=== PATIENT | male | born 2005 | race Hispanic/Latino ===

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

== ENCOUNTER 2024-03-13 15:25 | Emergency (ER) | payer OTHER, SELFPAY ==
--- NOTE | ~2024-03-13 | XR_ITS ---
EXAMINATION: XR abdomen/kub 1V DATE: 03/13/2024 16:10 INDICATION: Abdominal pain. Diarrhea. TECHNIQUE: A supine view of the abdomen was obtained. COMPARISON: CT abdomen and pelvis 12/25/2023 FINDINGS: There are no dilated loops of bowel. There is a small volume of stool in the colon. Surgica l clips in the right upper quadrant are likely from cholecystectomy. IMPRESSION: 1. Normal bowel gas pattern. Reviewed, dictated and finalized at location A. ENSATION MANAGER
[2024-03-13 15:33] VITALS: BP 152/67; PULSE 81; RESP 19; TEMP 37.2; O2SAT 97
--- NOTE | 2024-03-13 15:55 | ED.NAVMDI ---
HPI - Nausea/Vomiting/Diarrhea General Chief complaint: Nausea/Vomiting/Diarrhea Stated complaint: Anxious/Diarrhea/Surg X Time Seen by Provider: 03/13/24 15:45 Source: patient Mode of arrival: ambulatory Limitations: no limitations History of Present Illness HPI Narrative: Lj is a 18-year-old male patient presenting to the clinic today with complaints of feeling anxious, acute diarrhea, and lower abdominal discomfort. He reports he did have episode of nausea as well yesterday. Denies any fever, chills, or body aches. States he had to leave his college class early yesterday due to feeling overstimulated. States he has been feeling this way for a couple days. Denies any shortness of breath. Does also reports some urinary urgency without burning or frequency. History of cholecystectomy in November Related Data Home Medications Medication Instructions Recorded Confirmed No Home Medications 03/13/24 03/13/24 Allergies Allergy/AdvReac Type Severity Reaction Status Date / Time No Known Allergies Allergy Unknown Verified 03/13/24 15:49 Review of Systems Review of Systems: Pertinent positives per HPI. Patient denies any fever, chills, rash, headache, visual changes, dizziness, cough, runny nose, sore throat, shortness of breath, chest pain, palpitations, nausea, vomiting, diarrhea, constipation, abdominal pain, or any urinary issues. [facility] Past Medical History Medical History Pancreatitis Surgical History Surgical History History of laparoscopic cholecystectomy 12/24/2023 - laparoscopic cholecystectomy with intraoperative cholangiogram Social History Social History Smoking status: Never smoker Alcohol intake: never Substance use: never Substance use type: does not use Do You Feel Safe in your Home?: Yes Lack of Transportation: No Lack of Food: Never True Current Housing: I Have Housing Concerned About Future Housing: No Difficulty Paying Gas/Electric Bills: No Difficulty Paying for Meds: No Currently Unemployed: No Education: Grade School Difficulty w/ Childcare or Family Care: No Gender identity (if verbalized by the patient): Male Spiritual care concerns: No Comments At the time of my signature, I reviewed and agree with the nursing past medical, surgical, social, and family history. There is no relevant family history pertinent to the patient complaint. Exam Narrative: General: Well-developed, well nourished, in no apparent distress. Head: Normocephalic, atraumatic. Cardio: Regular rate and rhythm, s1 and s2 normal, no murmur appreciated. Resp: Clear to auscultation bilaterally, no rhonchi, rales, wheezing or rubs. Abdomen: Soft, pliable, bowel sounds present in all quadrants, mildly tender to palpation to the mid lower abdomen, no organomegly, no CVAT tenderness. Course Course Emergency Course: Portions of this record may have been created with voice recognition software. Level of Care: Express Care Visit Vital Signs Vital signs: Vital Signs Temperature 37.2 C 03/13/24 15:33 Pulse Rate 81 03/13/24 15:33 Respiratory Rate 19 03/13/24 15:33 Blood Pressure 152/67 H 03/13/24 15:33 Pulse Oximetry 97 03/13/24 15:33 Oxygen Delivery Room Air 03/13/24 15:33 Temperature 37.2 C 03/13/24 15:33 Pulse Rate 81 03/13/24 15:33 Respiratory Rate 19 03/13/24 15:33 Blood Pressure 152/67 H 03/13/24 15:33 Pulse Oximetry 97 03/13/24 15:33 Oxygen Delivery Room Air 03/13/24 15:33 Vital signs reviewed MDM - Nausea/Vomiting/Diarrhea MDM Narrative Medical decision making narrative: At the time of visit patient is resting comfortably on the exam table. Patient appears to be nontoxic. Labs: Urinalysis is negative for any sign protein, bacteria, blood, or ketones. Diagnostics: KUB x-ray shows a small amount of stool in the colon. Normal bowel gas pattern Plan: I suspect patient may have acute anxiety, acute diarrhea, and acute urgency with urination. Supportive measures were discussed with the patient and they voiced understanding discharge instructions and agrees to treatment plan. Return precautions reviewed Differential Diagnosis Differential diagnosis: Likely traveler's diarrhea, food poisoning, gastroenteritis, clostridium difficile infection, drug-induced nausea and vomiting and dehydration Lab Data Labs: Lab Results 03/13/24 Range/Units 16:00 POC Urine Color [place] POC Urine Clarity Clear POC Urine pH 6.0 POC Ur Specif [place] 1.025 POC Urine Protein Negative (Negative) POC Ur Glucose (UA) Negative (Negative) POC Urine Ketones Negative (Negative) POC Urine Blood Negative (Negative) POC Urine Nitrite Negative (Negative) POC Urine Bilirubin Negative (Negative) POC Urine Urobilinogen 0.2 POC U Leukocyte Esteras Negative (Negative) Discharge Plan Discharge Clinical Impression: Acute diarrhea, Anxiety, Urinary urgency Patient Disposition: Home, Self-Care Condition: Stable Instructions: Antibiotic Form, Acute Diarrhea (ED), Abdominal Pain (ED), Urinary Urgency and Frequency (DC) Additional Instructions: X-ray of the abdomen is negative for any sign acute abnormality. Shows normal bowel gas pattern. Urinalysis is negative for any sign of infection, blood, protein, or ketones. Increase fluids and stay well hydrated May try practicing relaxation techniques for periods of feeling anxiety Increase fiber in your diet May take Imodium as needed for diarrhea as long as there is no blood in your stool Brat diet for diarrhea Follow-up with your primary care doctor in 1 week if your symptoms persist or sooner if they worsen May go to the emergency room if your symptoms worsen Prescriptions: No Action No Home Medications Follow-up/Referrals: [facility] [Primary Care Provider] - Time of Disposition: 16:20 Quality NIHSS Nursing Documentation ED NIHSS nursing documentation: reviewed/agree
[2024-03-13 16:14] LABS: EDUAAPPEAR Clear; EDUABILI Negative (Negative); EDUABLOOD Negative (Negative); EDUACOLOR1 Amber; EDUAGLUCOSE Negative (Negative); EDUAKETONE Negative (Negative); EDUALEUKO Negative (Negative); EDUANITRATE Negative (Negative); EDUAPROTEIN Negative (Negative); EDUASPGRAVITY 1.025; EDUAUROBILI 0.2
== END 2024-03-13 16:30 | disposition home or self-care (01) ==
PROVIDERS: Emergency Provider Nurse Practitioner Family
DX: R19.7 Diarrhea, unspecified (principal); F41.9 Anxiety disorder, unspecified; R39.15 Urgency of urination
CPT/HCPCS: 74018; 81003; 99213; G0463

== ENCOUNTER 2024-03-22 13:07 | Emergency (ER) | payer OTHER, SELFPAY ==
[2024-03-22 13:15] VITALS: BP 117/71; PULSE 80; RESP 18; TEMP 36.7; O2SAT 98
--- NOTE | 2024-03-22 13:52 | ED_ITS ---
HPI - Eye Problem General Chief complaint: Eye Problems Stated complaint: Eyes Irritation Time Seen by Provider: 03/22/24 13:57 Source: patient, RN notes reviewed and old records reviewed Mode of arrival: ambulatory Limitations: no limitations History of Present Illness HPI Narrative: Patient reports history of seasonal allergies, not taking medications for same, presents with complaints of itchiness to bilateral eyes, worse in the morning. He denies any a.m. matting. He denies any visual disturbance. He denies any injury or trauma. He voices no other concerns or complaints at this time. He does not wear any contact lenses Related Data Allergies Allergy/AdvReac Type Severity Reaction Status Date / Time No Known Allergies Allergy Unknown Verified 03/22/24 13:10 Review of Systems Review of Systems: All systems reviewed & are unremarkable except as noted in HPI and below Constitutional: Constitutional: Reports no additional constitutional complaints Eyes: Eyes: Reports as per HPI, Reports no additional eye complaints, Reports irritation and Reports itchy eyes ENT: Reports system reviewed and no additional complaints, except as documented Cardiovascular: Cardiovascular: Reports no additional cardiovascular complaints Respiratory: Respiratory: Reports no additional respiratory complaints Gastrointestinal: Gastrointestinal: Reports no additional gastrointestinal complaints [facility] Past Medical History Medical History Pancreatitis Surgical History Surgical History History of laparoscopic cholecystectomy 12/24/2023 - laparoscopic cholecystectomy with intraoperative cholangiogram Social History Social History Smoking status: Never smoker Alcohol intake: never Substance use: never Substance use type: does not use Do You Feel Safe in your Home?: Yes Lack of Transportation: No Lack of Food: Never True Current Housing: I Have Housing Concerned About Future Housing: No Difficulty Paying Gas/Electric Bills: No Difficulty Paying for Meds: No Currently Unemployed: No Education: Grade School Difficulty w/ Childcare or Family Care: No Gender identity (if verbalized by the patient): Male Spiritual care concerns: No Comments At the time of my signature, I reviewed and agree with the nursing past medical, surgical, social, and family history. There is no relevant family history pertinent to the patient complaint. Exam Const: General: cooperative, no acute distress, alert and awake Orientation/consciousness: oriented to person, oriented to place and oriented to time HENMT: Head: normal to inspection Mouth: Yes moist mucous membranes Eyes: General: appearance normal, both eyes and all related structures Resp: Effort & Inspection: normal respiratory effort and able to speak in complete sentences Auscultation: clear to auscultation bilaterally, no crackles, no rales, no rhonchi and no wheezes Cardio: Palpation: normal PMI Rate: regular rate Rhythm: regular rhythm Heart sounds: S1 normal heart sound present and S2 normal heart sound present Neuro: General: oriented to person, oriented to place and oriented to time Cranial nerves: Yes CN's II-XII intact bilaterally Psych: Appearance: grossly normal Thought process: Normal thought process present Insight: Good insight present (Psych) Judgement: Good judgement present (Psych) Course Course Level of Care: Express Care Visit Vital Signs Vital signs: Vital Signs Temperature 98.1 F 03/22/24 13:15 Pulse Rate 80 03/22/24 13:15 Respiratory Rate 18 03/22/24 13:15 Blood Pressure 117/71 03/22/24 13:15 Pulse Oximetry 98 03/22/24 13:15 Oxygen Delivery Room Air 03/22/24 13:15 Temperature 98.1 F 03/22/24 13:15 Pulse Rate 80 03/22/24 13:15 Respiratory Rate 18 03/22/24 13:15 Blood Pressure 117/71 03/22/24 13:15 Pulse Oximetry 98 03/22/24 13:15 Oxygen Delivery Room Air 03/22/24 13:15 Reviewed MDM - Eye Problem MDM Narrative Medical decision making narrative: No abnormalities on exam. Patient advised to take [id number] allergy relief medications per package instructions. Discharge instructions reviewed with patient, as well as provided in writing per nursing staff. The instructions also include specific and strict return/GO TO THE ER as well as f/u information. All questions have been answered, and the patient deny any further questions with discharge and discharge plan. Some parts of this dictation were generated by voice recognition software and may contain typographical and/or grammatical inaccuracies. Differential Diagnosis Differential diagnosis: Likely conjunctivitis Medical Records Attestation: I reviewed the patient's medical records. Discharge Plan Discharge Clinical Impression: Seasonal allergies Patient Disposition: Home, Self-Care Condition: Stable Instructions: Antibiotic Form, Allergies (ED) Additional Instructions: Take medications as prescribed, follow up with primary care provider. Emergency department for new or worse symptoms Patient Language: Grenadian Prescriptions: New cetirizine [Zyrtec] 10 mg tablet 10 mg PO DAILY PRN (Reason: allergy symptoms) Qty: 30 0RF Follow-up/Referrals: PHYSICIAN,PATIENT NAVIGATOR [Primary Care Provider] - Time of Disposition: 14:06
== END 2024-03-22 14:20 | disposition home or self-care (01) ==
PROVIDERS: Emergency Provider Nurse Practitioner Family
DX: J30.2 Other seasonal allergic rhinitis (principal)
CPT/HCPCS: 99213; G0463

== ENCOUNTER 2024-12-04 05:35 | Inpatient (IN) | payer OTHER, SELFPAY ==
[2024-12-04] VITALS (8 sets, daily range): BP systolic 121–138; BP diastolic 60–79; PULSE 52–93; RESP 13–19; TEMP 36.2–36.6; O2SAT 97–100; BMI 33.8
--- NOTE | ~2024-12-04 | CT_ITS ---
EXAMINATION: CTA chest PE abdomen pel DATE: 12/04/2024 7:52 CDT INDICATION: Epigastric pain, shortness of breath and positive d-dimer TECHNIQUE: Computed tomographic angiography (CTA) of the chest, abdomen, and pelvis was performed wit hout and with 100 mL Omnipaque-350 intravenous contrast. The dose-length product was 1407.41 mGy-cm. Maximum intensity projection 3D-reconstructions of the aorta and other arteries were constructed by christine ferrari technologist on a separate workstation. COMPARISON: CT dated 12/25/2023. FINDINGS: CHEST CTA: Study is technically adequate without evidence for pulmonary embolism. No evidence for aortic aneurys m. Heart size is normal. No significant pleural or pericardial effusion. No endobronchial lesions. No focal airspace consolidation. No suspicious pulmonary nodules or masses. ABDOMEN AND PELVIS CTA: There is moderate fluid surrounding the pancreas which appears to be thickened. There is no discrete areas of hypoperfusion of the pancreas. Fatty infiltration of the liver. Status post cholecystectomy. The spleen, adrenal glands and kidneys are unremarkable. Nonobstructive bowel gas pattern. No abnorm al pelvic masses or fluid collections. IMPRESSION: 1. Acute pancreatitis with moderate surrounding phlegmonous change. No evidence for pancreatic necros is, abscess or pseudocyst. Reviewed, dictated and finalized at location A. IMPRESSION: 1. Acute pancreatitis with moderate surrounding phlegmonous change. No evidence for pancreatic necrosis, abscess or pseudocyst.
--- NOTE | ~2024-12-04 | MR_ITS ---
EXAMINATION: MR MRCP wo/w con/w 3D wo ind DATE: 12/04/2024 13:18 INDICATION: Pancreatitis TECHNIQUE: Magnetic resonance imaging (MRI) of the abdomen was performed without and with 19 mL Multi cindy intravenous contrast. Sequences included coronal T2-weighted SS-FSE, coronal T2-weighted FS SS- FSE, coronal T2-weighted FS FIESTA, axial T2-weighted FS FIESTA, axial T2-weighted FIESTA, sagittal T 2-weighted SS-FSE, axial T1-weighted dual-echo FSPGR, axial T2-weighted SS-FSE, axial T1-weighted LAV A, axial T2-weighted STIR FSE. Thick-slab T2-weighted FRFSE-XL images were obtained for magnetic reso nance cholangiopancreatography (MRCP). Rotating maximum intensity projection 3-D reconstructions of t he volumetric data were created by the technologist. Postcontrast sequences included a time course of axial T1-weighted LAVA. COMPARISON: None. FINDINGS: ABDOMEN MRI: Heart size is normal. No pericardial or pleural effusion. Status post cholecystectomy. Liver, spleen, bilateral adrenal glands and kidneys are normal. Diffuse interstitial edema throughout the pancreas along with prominent surrounding peripancreatic edema and small nonloculated appearing acute peripanc reatic fluid collections tracking craniocaudally along the left and right anterior pararenal space as well as anterior to the tail of the pancreas. No organized peripheral enhancing abscess or acute nec rotic collections. Visualized portions of bowels are unremarkable. No pathologically enlarged abdomin al lymphadenopathy. Mild likely physiologic anterior wedging at T11 and T12. Visualized bones are unr emarkable with normal marrow signal throughout. ABDOMEN MRCP: Mild central intrahepatic biliary ductal dilation and mild dilation the common bile duct to 7 mm, bot h which are within normal limits post cholecystectomy. No choledocholithiasis. The main pancreatic du ct is difficult to distinguish from the interstitial edema but is not dilated. IMPRESSION: 1. Acute interstitial pancreatitis with prominent peripancreatic edema and a few acute peripancreatic fluid collections. No organized abscess or acute necrotic collections. 2. Mild dilation the common bile duct to 7 mm and mild central intrahepatic biliary ductal dilation, both which are within normal limits post cholecystectomy. No evident choledocholithiasis or other obs tructing lesions. Reviewed, dictated and finalized at location A. IMPRESSION: 1. Acute interstitial pancreatitis with prominent peripancreatic edema and a fe w acute peripancreatic fluid collections. No organized abscess or acute necroti c collections. 2. Mild dilation the common bile duct to 7 mm and mild central intrahepatic gerald iary ductal dilation, both which are within normal limits post cholecystectomy. No evident choledocholithiasis or other obstructing lesions.
--- NOTE | ~2024-12-04 | XR_ITS ---
Portable chest x-ray Comparison: None Clinical History: Epigastric pain Findings: Lungs are clear, without focal consolidation or pleural effusion. Cardiomediastinal silho uette is unremarkable. Bones and soft tissues are unremarkable. Impression: Normal chest. Reviewed, dictated and finalized at location . Impression: Normal chest.
--- NOTE | ~2024-12-04 | XR_ITS ---
EXAMINATION: XR chest 1V portable DATE: 12/07/2024 11:10 INDICATION: Fever of unknown origin. Leukocytosis. TECHNIQUE: frontal view of the chest was obtained. COMPARISON: Chest radiograph dated 12/04/2024 FINDINGS: New retrocardiac opacity in the left lower lung zone which could represent atelectasis or pneumonia. Right lung remains clear. No pulmonary edema, pleural effusion or pneumothorax. Heart size is normal. Cholecystectomy clips in right upper quadrant. IMPRESSION: 1. New opacities at the left lower lung zone which could represent atelectasis or pneumonia. Reviewed, dictated and finalized at location A.
--- OUTSIDE RECORDS SUMMARY | 2024-12-04 05:37 | XMS_ITS | Clinical Summary ---
Author Organization [facility] Address [address] [place] [address] Phone Care Team Providers Care Detention Deputy Name Role Phone Vincenzo Villafana MD Primary Care Provider [phone] Allergies No known active allergies Medications No known medications Social History Tobacco Use Types Packs/Day Years Used Date Smoking Tobacco: Never Sex and Gender Information Value Date Recorded Sex Assigned at Not on file Legal Sex Male 7:51 PM CDT Gender Identity Not on file Sexual Orientation Not on file Last Filed Vital Signs Vital Sign Reading Time Taken Comments Blood Pressure 121/69 04/07/2016 10:11 AM [employer]S [employer]ORATORY DIRECTOR Pulse 106 04/07/2016 10:11 AM [employer]GY [employer]S LABORATORY DIRECTOR Temperature 36.1 C (97 F) 04/07/2016 10:11 AM EN[employer]GY SYSTEMS LABORATORY DIRECTOR Respiratory Rate 20 04/07/2016 10:11 AM ENERGY SYSTEMS LABORATORY DIRECTOR Oxygen Saturation 96% 04/07/2016 10:11 AM ENERGY SYSTEMS LABORATORY DIRECTOR Inhaled Oxygen Concentration - - Weight 59.6 kg (131 lb 6 oz) 04/07/2016 10:11 AM ENERGY SYSTEMS LABORATORY DIRECTOR Height 147.3 cm (4' 10) 04/07/2016 10:11 AM ENERGY SYSTEMS LABORATORY DIRECTOR Body Mass Index 27.46 04/07/2016 10:11 AM ENERGY SYSTEMS LABORATORY DIRECTOR Plan of Treatment Health Maintenance Due Date Last Done Comments Hepatitis C Virus (HCV) Screening 2004 Hepatitis B Immunization (3 of 3 - 3-dose series) 12/21/2005 10/26/2005, 2004 Meningococcal B Immunization (1 of 2 - Standard) 2020 SARS-COV-2 Immunization (2023- season) 2023 Influenza Immunization (#1) 12/30/202412/2020, 02/12/2016, 03/10/2010, Additional history exists Respiratory Syncytial Virus (RSV) Immunization (Adult) (1 - 1-dose 75+ series) 10/22/2079 Pneumococcal Immunization Combined Aged Out 10/26/2005 No longer eligible based on patient's age to complete this topic Hepatitis A Immunization Discontinued 11/21/2008, 11/2007 Measles Mumps Rubella (MMR) Immunization Discontinued 11/21/2008, 10/26/2005 Polio (IPV) Immunization Discontinued 11/21/2008, 09/30 Varicella Immunization Discontinued 11/21/2008, 2005 DTaP/Tdap/Td Immunization Discontinued 2015, 11/21/2008, 03/28/2006, Additional history exists Human Papillomavirus (HPV) Immunization Completed 02/12/2016, 11/24/2014, 10/31/2013 TdaP Immunization Completed 02/12/2016 Meningococcal Immunization (ACWY) Completed 03/09/2021, 02/12/2016 Rotavirus Immunization Aged Out No lo nger eligible based on patient's age to complete this topic Insurance MEDICAID [employer] on file Care Teams Detention Deputy Relationship Specialty Start Date End Date Vincenzo Villafaan MD [address] [place] [address] PCP - General Pediatrics 04/07/16
--- OUTSIDE RECORDS SUMMARY | 2024-12-04 05:37 | XMS_ITS | Encounter Summary ---
Author Organization [facility] Address [address] [place] [address] Care Team Providers Care Crm Marketing Specialist Name Role Phone Vincenzo Villafana MD Primary Care Provider [phone] [facility] Primary Care Provider Vincenzo Villfaana MD Primary Care Provider [phone] Penelope Regalado MD Primary Care Provider [phone] Reason for Visit * Reason Onset Date Comments Scheduling 06/17/2016 Encounter Details Date Type Department Care Team (Late st Contact Info) Description 06/17/2016 Telephone [id number] [place] [address] Markel Gray Jr., MD [address] [place] [id number] Scheduling Social History Tobacco Use Types Packs/Day Years Used Date Smoking Tobacco: Never Alcohol Use Standard Drinks/Week Comments No 0 (1 standard drink = 0.6 oz pur e alcohol) Sex and Gender Information Value Date Recorded Sex Assigned at Not on file Legal Sex Male 5:45 AM HOG BUYER Gender Identity Not on file Sexual Orientation Not on file documented as of this encounter Functional Status * Is person deaf or have serious hearing difficulty? Answer Date of Assessment Author No 11/13/2015 2:14 AM CDT Amada Guadarrama RN * Is person blind or have serious difficulty seeing? Answer Date of Assessment Author No 11/13/2015 2:14 AM ONESIMOT Amada Guadarrama RN * Does person have serious difficulty walking/climbing stairs? Answer Date of Assessment Author No 11/13/2015 2:14 AM Amada Bonilla RN * Does person have difficulty dressing/bathing? Answer Date of Assessment Author No 11/13/2015 2:14 AM Amada Bonilla RN * Does person have difficulty doing errands alone? Answer Date of Assessment Author No 11/13/2015 2:14 AM Amada Bonilla RN documented as of this encounter Mental Status * Does person have difficulty concentrating/remembering/making decisions? Answer Entry Date Author No 11/13/2015 2:14 AM Amada Bonilla RN documented in this encounter Miscellaneous Notes * Telephone Encounter - Zarina Katz - 06/17/2016 4:07 PM CST Spoke with Alexi in clinic scheduled Liver Bx 07/01/2016 @ 12:[address] Aguirre and Dr. Gray. US notified. Patient to arrive 2 hours early. BUYER documented in this encounter Plan of Treatment Not on file documented as of this encounter Visit Diagnoses Not on filedocumented in this encounter Care Teams Crm Marketing Specialist Relationship Specialty Start Date End Date Vincenzo Villafana MD [address] [place] [id number] PCP - General Pediatrics 11/12/15 07/25/18 [facility] [address] [place] [id number] PCP - General Family Medicine 07/26/18 05/04/22 Vincenzo Villafana MD [address] [place] [id number] PCP - General 05/05/22 07/03/22 Penelope Regalado MD [address] [place] [address] PCP - General Pediatrics 07/04/22 documented as of this encounter
--- OUTSIDE RECORDS SUMMARY | 2024-12-04 05:37 | XMS_ITS | Clinical Summary ---
Author Organization [facility] Address [address] [place] [address] Care Team Providers Care A R Collections Rep Name Role Phone Penelope Regalado MD Primary Care Provider [phone] Source Comments [facility],non-owned Affiliates and Associated Physician Practices is amultiple site organization consisting of ambulatory clinics and hospital sitesin [place], [place], [place] and [place]. This disclosure is being madepursuant to the Care Everywhere program and may not contain all information available regarding this patient. Last updated 18.[facility] [employer] Allergies No known active allergies Medications * Be aware that medications may not be up to date on this document. Alwaysverify current medications with the patient. omeprazole EC (PRILOSEC OTC) 20 MG tablet Take 1 Tab by mouth daily before breakfast 30 Tab 5 11/18/19 16 Active Additional Information Patient not taking.Reported on 08/25/2022 polyethylene glycol 3350 (MIRALAX) powderIndication s:Constipation, unspecified constipation type Take 17 g by mouth once daily 500 g 3 01/29/20 16 Active Additional Information Patient not taking.Reported on 07/04/2022 acetaminophen (TYLENOL) 160 MG/5ML solution Take 10 mg/kg by mouth every 4 hours as needed for Fever or Pain Active ibuprofen (MOTRIN) 600 MG tablet Take 1 tablet by mouth every 6 hours as needed for Pain Collaborating physician Dr Penelope Marvin 20 tablet 07/27/19 19 Active Additional Information Patient not taking.Reported on 07/04/2022 ondansetron, disintegrating, (Zofran ODT) 4 MG tablet Take 1 (one) tablet by mouth every 6 hours as needed for Nausea/Vomiting 6 tablet 07/05/19 Active Additional Information Patient not taking.Reported on 08/25/2022 alum & mag hydroxide-simeth (Maalox Advanced) 200-200-20 MG/5ML suspension Take 30 mL by mouth every 6 hours as needed for Heartburn 355 mL 07/05/19 Active Additional Information Patient not taking.Reported on 08/25/2022 tacrolimus (Protopic) 0.1 % ointmentIndicati ons:Other atopic dermatitis Apply to affected areas on the neck two times daily. 30 days supply. 100 g 3 08/26/19 Active triamcinolone acetonide (Kenalog) 0.1 % ointmentIndicati ons:Other atopic dermatitis Apply to affected areas on trunk and extremities twice daily. 30 days supply. 454 g 2 08/26/19 Active Active Problems Problem Noted Date Diagnosed Date Overweight 07/28/2017 Recurrent pancreatitis 01/29/2016 Generalized abdominal pain 11/12/2015 Assessment & Plan (11/13/2015 2:54 AM CDT): Assessment: Lj is a 10 y/o male with abdominal pain. Given elevated lipase at OSH, pancreatitis is likely. Abdominal ultrasound in am. Etiologies include: Appendicitis, vs. viral gastroenteritis given sick contacts, gall stones could causing pancreatitis, although rubalcava's sign on exam was negative. Patient well appearing on exam, NAD, with VSS. Plan: - Admit to gastroenterology, Dr. Tillman - Cardiorespiratory monitoring, Vitals q8hr, pulse ox - I&O's - NPO - D5 1/2 NS +20KCl @ 90ml/hr - Abdominal US in AM - Oxycodone 5 mg q4 prn severe pain - Tylenol q4hr prn for fevers/mild pain - Amylase, lipase, and CMP in AM Elevated liver enzymes Family History Medical History Relation Name Comments Negative Family History Other of p ancreatitis Relation Name Status Comments Other Social History Tobacco Use Types Packs/Day Years Used Date Smoking Tobacco: Never Smokeless Tobacco: Never Alcohol Use Standard Drinks/Week Comments No 0 (1 standard drink = 0.6 oz pur e alcohol) Sex and Gender Information Value Date Recorded Sex Assigned at Not on file Legal 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 Gender Identity Not on file Sexual Orientation Not on file Last Filed Vital Signs Vital Sign Reading Time Taken Comments Blood Pressure 116/70 07/04/2022 8:51 AM SENIOR LINUX SYSTEMS ADMINISTRATOR Pulse 68 07/04/2022 8:51 AM SENIOR LINUX SYSTEMS ADMINISTRATOR Temperature 36.6 C (97.8 F) 07/04/2022 8:51 AM SENIOR LINUX SYSTEMS ADMINISTRATOR Respiratory Rate 20 07/04/2022 8:51 AM SENIOR LINUX SYSTEMS ADMINISTRATOR Oxygen Saturation 98% 07/04/2022 8:51 AM SENIOR LINUX SYSTEMS ADMINISTRATOR Inhaled Oxygen Concentration 100% 07/01/2016 9 :38 AM SENIOR LINUX SYSTEMS ADMINISTRATOR Weight 88.6 kg (195 lb 5.2 oz) 07/04/2022 8:51 A M SENIOR LINUX SYSTEMS ADMINISTRATOR Height 175 cm (5' 8.9) 07/04/2022 8:51 AM SENIOR LINUX SYSTEMS ADMINISTRATOR Body Mass Index 28.93 07/04/2022 8:51 AM SENIOR LINUX SYSTEMS ADMINISTRATOR Plan of Treatment Health Maintenance Due Date Last Done Comments HIV SCREENING 10/22/2019 HPV VACCINE (1 - Male 3-dose series) 10/22/2019 MENINGOCOCCAL (Group B) VACCINE SHARED DECISION-MAKING (1 of 2 - Standard) 2020 DTAP/TDAP/TD VACCINES (1 - Tdap) 10/22/2023 HEPATITIS B VACCINE (1 of 3 - 19+ 3-dose series) 10/22/2023 COVID-19 VACCINE (1 - 2023-2 5 season) 2023 DEPRESSION SCREENING 05/01/2024 INFLUENZA VACCINE (#1) 2024 , 02/12/2016, 04/08/2009 ZOSTER VACCINE (1 of 2) 2054 HEPATITIS C SCREENING Completed 03/10/2016 HIB VACCINE Aged Out No longer eligi ble based on patient's age to complete this topic MENINGOCOCCAL GROUPS A/C/Y/W VACCINE Aged Out No longer eligible b ased on patient's age to complete this topic PNEUMOCOCCAL VACCINE Aged Out No long er eligible based on patient's age to complete this topic Procedures Procedure Name Priority Date/Time Associated Diagnosis Comments HEPATITIS SCREEN ACUTE Routine 03/10/2016 3:43 PM SENIOR LINUX SYSTEMS ADMINISTRATOR Elevated transaminase level from Last 3 Months or Most Recently Relevant to Health Maintenance Results * HEPATITIS SCREEN ACUTE (03/10/2016 3:43 PM SENIOR LINUX SYSTEMS ADMINISTRATOR) HAV Antibody IgM Non Reactive Non Reactive 03/11/2016 11:56 AM [facility] HBsAg Non Reactive Non Reactive 03/11/2016 11:56 AM [facility] HBc Antibody IgM Non Reactive Non Reactive 03/11/2016 11:56 AM [facility] HCV Antibody Screen Non Reactive Non Reactive 03/11/2016 11:56 AM [facility] HCV S/C Ratio 0.10 0.00 - 0.79 03/11/2016 11:56 AM [facility] Comment: Ixmecj-rc-xuvwre ratio (S/CO) <0.80: Non Reactive Blood BLOOD SPECIMEN / Unknown Lab Venipuncture / Unknown 03/10/2016 3:43 PM SENIOR LINUX SYSTEMS ADMINISTRATOR 03/10/2016 4:41 PM SENIOR LINUX SYSTEMS ADMINISTRATOR Narrative [facility] - 03/11/2016 11:56 AM SENIOR LINUX SYSTEMS ADMINISTRATOR Non Reactive - Antibodies to Hepatitis C virus (HCV) were not detected, result does not exclude early acute HCV infection. Non Reactive - Antibodies to Hepatitis C virus (HCV) were not detected, result does not exclude early acute HCV infection. Markel Gray Jr., MD LAB - CHEMISTRY ORDER EUNICE Final Result Performing Organization Address City/State/[facility] Co de Phone Number [facility] [address] [place] [address] from Last 3 Months or Most Recently Relevant to Health Maintenance Insurance SELF PAY NO INSURANCE Member Subscriber Plan / Payer (Ef fective for All Dates) Name:Lj Rincon Member ID:Not on file Relation to Subscriber:Not on file Name:LJ RINCON Subscriber ID:Not on file (Home) Address: [address] [place] [id number] Payer ID:Not on file Group ID:Not on file Type:Self Pay Address: [facility] [place] [facility] MEDICAID - [place] [facility] Advance Directives * Full Code (Latest Code Status on File) Date Activated Date Inactivated Comments 11/13/2015 2:05 AM 11/13/2015 8:49 PM Care Teams A R Collections Rep Relationship Specialty Start Date End Date Penelope Regalado MD [address] [place] [phone] PCP - General Pediatrics 07/04/22
--- NOTE | 2024-12-04 05:59 | ECG_ITS ---
Test Date: 2024-12-04 06:09:34 Measurements Intervals [place] Rate: 51 P: 29 OK: 121 QRS: 45 QRSD: 82 T: 51 QT: 406 QTc: 377 Interpretive Statements SINUS BRADYCARDIA WITH SINUS ARRHYTHMIA EARLY PRECORDIAL R/S TRANSITION MINIMAL Q WAVES- ANTEROLAT/HIGH LAT LEADS BASELINE ARTIFACT- III, V4 BORDERLINE ECG No previous ECG available for comparison Electronically Signed On 12-04-2024 06:22:02 CDT by Major Steel D.O.
[2024-12-04] MEDS: fentaNYL CITRATE INJ (*CRX) 100 MCG/2 ML VIAL 25 MCG IV PUSH (06:22)
--- NOTE | 2024-12-04 06:24 | ED.ABDPAIN ---
HPI - Abdominal Pain General Chief Complaint: Abdominal Pain <Naila Vicente MD - Last Filed: 12/04/24 08:37> Stated Complaint: LUQ abd pain <Naila Vicente MD - Last Filed: 12/04/24 08:37> Time Seen by Provider: 12/04/24 06:12 <Naila Vicente MD - Last Filed: 12/04/24 08:37> History of Present Illness HPI narrative: Patient presents with epigastric pain starting yesterday. He states that has been progressively worsening. As he was driving he became nauseated. He denies any chest pain but did develop a little shortness of breath. He has subsequently vomited. States his last bowel movement was yesterday approximately 8:00 p.m. and he denies any diarrhea, constipation, or bloody stools. Denies any bloody emesis. Denies drinking alcohol. Perhaps took 1 ibuprofen on Monday and took 1 or 2 tablets yesterday but denies extensive NSAID use. History of a liver biopsy to test for fatty liver and a cholecystectomy. <Naila Vicente MD - Last Filed: 12/04/24 08:37> Related Data Allergies/Adverse Reactions: Allergies Allergy/AdvReac Type Severity Reaction Status Date / Time No Known Allergies Allergy Unknown Verified 12/04/24 11:31 <Naila Vicente MD - Last Filed: 12/04/24 08:37> [facility] Past Medical History Medical History: Medical History (Updated 12/04/24 @ 16:44 by Mikey Garza MD) Nausea and vomiting in adult Pancreatitis <Naila Vicente MD - Last Filed: 12/04/24 08:37> Surgical History Surgical History: Surgical History (Updated 12/04/24 @ 16:44 by Mikey Garza MD) History of liver biopsy to test for fatty liver History of laparoscopic cholecystectomy 12/24/2023 - laparoscopic cholecystectomy with intraoperative cholangiogram <Naila Vicente MD - Last Filed: 12/04/24 08:37> Social History Social History: Social History Smoking status: Never smoker Alcohol intake: never Substance use: never Substance use type: does not use Do You Feel Safe in your Home?: Yes Lack of Transportation: No Lack of Food: Never True Current Housing: I Have Housing Concerned About Future Housing: Decline to Answer Difficulty Paying Gas/Electric Bills: Decline to Answer Difficulty Paying for Meds: Decline to Answer Currently Unemployed: Decline to Answer Education: High School Diploma/GED Difficulty w/ Childcare or Family Care: Decline to Answer Gender identity (if verbalized by the patient): Male Spiritual care concerns: No <Naila Vicente MD - Last Filed: 12/04/24 08:37> Exam Narrative: GENERAL: Well-appearing, well-nourished, in moderate acute distress. HEAD: Normocephalic, atraumatic. EYES: Non injected, non icteric ENT: Nares clear, no rhinorrhea or epistaxis. Gross auditory acuity intact. NECK: Supple. No meningismus. CHEST: Speaking in full sentences. No respiratory distress. HEART: Bradycardic rate and rhythm. ABDOMEN: Mild tenderness to palpation at the epigastrium. Soft, nondistended. No rigidity or guarding. Not peritoneal EXTREMITIES: Normal range of motion. No lower extremity edema. SKIN: Warm, diaphoretic around the face, no rash NEURO: No focal deficits. Alert and oriented. Answering questions. Following commands. Normal speech without aphasia or dysarthria. PSYCH: Normal mood and affect. <Naila Viecnte MD - Last Filed: 12/04/24 08:37> Course Course Emergency Course: Patient signed out to me while awaiting hospitalist call back. Patient accepted by the hospitalist. GI also consulted. Recommends LR IV as well as MRCP. Keep NPO. <Irvin Medellin MD - Last Filed: 12/04/24 18:09> Vital Signs Vital signs: Vital Signs Temperature 97.6 F 12/04/24 05:38 Pulse Rate 70 12/04/24 05:38 Respiratory Rate 19 12/04/24 05:38 Blood Pressure 138/71 12/04/24 05:38 Pulse Oximetry 100 12/04/24 05:38 Oxygen Delivery Room Air 12/04/24 05:38 Temperature 97.1 F L 12/04/24 14:00 Pulse Rate 60 12/04/24 14:00 Respiratory Rate 14 12/04/24 14:00 Blood Pressure 137/71 12/04/24 14:00 Pulse Oximetry 98 12/04/24 14:00 Oxygen Delivery Room Air 12/04/24 10:30 <Naila Vicente MD - Last Filed: 12/04/24 08:37> Vital Signs Temperature 97.6 F 12/04/24 05:38 Pulse Rate 70 12/04/24 05:38 Respiratory Rate 19 12/04/24 05:38 Blood Pressure 138/71 12/04/24 05:38 Pulse Oximetry 100 12/04/24 05:38 Oxygen Delivery Room Air 12/04/24 05:38 Temperature 97.1 F L 12/04/24 14:00 Pulse Rate 60 12/04/24 14:00 Respiratory Rate 14 12/04/24 14:00 Blood Pressure 137/71 12/04/24 14:00 Pulse Oximetry 98 12/04/24 14:00 Oxygen Delivery Room Air 12/04/24 10:30 <Irvin Medellin MD - Last Filed: 12/04/24 18:09> MDM - Abdominal Pain MDM Narrative Medical decision making narrative: Patient presents with epigastric pain beginning yesterday and worsening. In the emergency department they are afebrile with vital signs within normal limits. As patient is being roomed however he is noted to be bradycardic, hypotensive, and diaphoretic. I did go to bedside to assess. 1 L IV fluids ordered. Blood pressure improves with this reported by the RN. Analgesia ordered at this time. He has a leukocytosis. Mild hypokalemia. Troponin normal. There is a significant delay in obtaining lipase result. Called lab at approx 08:05 and learned it was very high and is diluting. Thus further supports pancreatitis even before CT back. History of pancreatitis, s/p fern. Will order triglyceride level as possible other etiology (patient denies alcohol). 2 L of IV fluids ordered. Patient signed out to auto parts counter person ED physician while awaiting call back from hospitalist. Patient to be admitted. <Naila Vicente MD - Last Filed: 12/04/24 08:37> Differential Diagnosis Differential diagnosis: Likely abdominal pain, constipation, pancreatitis, small bowel obstruction and other (peptic/gastric ulcer, PNA, lower suspicion for ACS, PE, dissection) <Naila Vicente MD - Last Filed: 12/04/24 08:37> Lab Data Attestation: I reviewed the patient's lab results. <Naila Vicente MD - Last Filed: 12/04/24 08:37> Result diagrams: 12/04/24 06:06 12/04/24 06:06 <Naila Vicente MD - Last Filed: 12/04/24 08:37> Labs: Lab Results 12/04/24 12/04/24 12/04/24 Range/Units 06:05 06:06 06:09 WBC 15.0 H (4.5-10.0) K/mm3 RBC 5.05 (4.6-6.20) M/mm3 Hgb 15.8 (14.0-18.0) g/dL Hct 44.9 (42.0-52.0) % MCV 88.9 (80-100) fl MCH 31.3 (26-34) pg MCHC 35.2 (32-36) g/dl RDW 13.7 (11.5-14.5) % Plt Count 283 (150-375) k/mm3 MPV 11.9 H (7.4-10.4) fl Immature Gran % (Auto) 0.4 (0-0.5) % Neut % (Auto) 76.2 H (45.5-73.1) % Lymph % (Auto) 12.6 L (18.3-44.2) % [place] % (Auto) 7.2 (2.6-8.5) % Eos % (Auto) 3.1 (0-4.4) % Baso % (Auto) 0.5 (0.2-1.2) % Lymph # (Auto) 1.89 (0.9-3.2) K/mm3 [place] # (Auto) 1.1 H (0.1-0.6) K/mm3 Eos # (Auto) 0.5 H (0-0.3) K/mm3 Baso # (Auto) 0.1 (0.0-0.1) K/mm3 Abs Immat Gran (auto) 0.06 H (0.00-0.031) K/mm3 Absolute Neuts (auto) 11.4 H (1.3-6.7) K/mm3 Absolute Nucleated RBC 0.000 (0.0-0.012) K/mm3 Nucleated RBC % 0.0 (0.0-0.2) % D-Dimer 1.54 H (<0.48) ug/mL Sodium 139 (137-145) mmol/L Potassium 3.3 L (3.4-5.0) mmol/L Chloride 104 (98-107) mmol/L Carbon Dioxide 24 (22-30) mmol/L Anion Gap 11 (4-12) mmol/L BUN 15 D (9-20) mg/dL Creatinine 0.84 (0.7-1.3) mg/dL Estim Creat Clear Calc 138 ml/min Estimated GFR > 60 (59 - ) Glucose 115 H (65-110) mg/dL Lactic Acid 1.3 (0.7-2.0) mmol/L Calcium 9.5 (8.4-10.2) mg/dL Magnesium (1.6-2.3) mg/dL Total Bilirubin 0.8 (0.2-1.3) mg/dL AST 42 (17-59) U/L ALT 48 (6-50) U/L Alkaline Phosphatase 96 (38-126) U/L Troponin I < 0.012 (0.000-0.034) ng/mL Total Protein 7.9 (6.3-8.2) g/dL Albumin 4.7 (3.5-5.1) g/dL Triglycerides (<150) mg/dL Lipase 14583 H (23-300) U/L Urine Color (Yellow) Urine Appearance (Clear) Urine pH (5.0-9.0) Ur Specific [place] (1.001-1.035) Urine Protein (Negative) mg/dL Urine Glucose (UA) (Negative) mg/dL Urine Ketones (Negative) mg/dL Ur Blood (Man) (Negative) Urine Nitrate (Negative) Urine Bilirubin (Negative) Urine Urobilinogen (<2.0) mg/dL Add Ur Microanalysis Leukocyte Esterase Rfl (Negative) DIONI/UL Urine RBC (0-2) /hpf Urine WBC (0-3) /hpf Ur Squamous Epith Cells (Few) /hpf Urine Bacteria /hpf Urine Casts 12/04/24 12/04/24 Range/Units 07:34 08:44 WBC (4.5-10.0) K/mm3 RBC (4.6-6.20) M/mm3 Hgb (14.0-18.0) g/dL Hct (42.0-52.0) % MCV (80-100) fl MCH (26-34) pg MCHC (32-36) g/dl RDW (11.5-14.5) % Plt Count (150-375) k/mm3 MPV (7.4-10.4) fl Immature Gran % (Auto) (0-0.5) % Neut % (Auto) (45.5-73.1) % Lymph % (Auto) (18.3-44.2) % [place] % (Auto) (2.6-8.5) % Eos % (Auto) (0-4.4) % Baso % (Auto) (0.2-1.2) % Lymph # (Auto) (0.9-3.2) K/mm3 [place] # (Auto) (0.1-0.6) K/mm3 Eos # (Auto) (0-0.3) K/mm3 Baso # (Auto) (0.0-0.1) K/mm3 Abs Immat Gran (auto) (0.00-0.031) K/mm3 Absolute Neuts (auto) (1.3-6.7) K/mm3 Absolute Nucleated RBC (0.0-0.012) K/mm3 Nucleated RBC % (0.0-0.2) % D-Dimer (<0.48) ug/mL Sodium (137-145) mmol/L Potassium (3.4-5.0) mmol/L Chloride (98-107) mmol/L Carbon Dioxide (22-30) mmol/L Anion Gap (4-12) mmol/L BUN (9-20) mg/dL Creatinine (0.7-1.3) mg/dL Estim Creat Clear Calc ml/min Estimated GFR (59 - ) Glucose (65-110) mg/dL Lactic Acid (0.7-2.0) mmol/L Calcium (8.4-10.2) mg/dL Magnesium 1.8 (1.6-2.3) mg/dL Total Bilirubin (0.2-1.3) mg/dL AST (17-59) U/L ALT (6-50) U/L Alkaline Phosphatase (38-126) U/L Troponin I (0.000-0.034) ng/mL Total Protein (6.3-8.2) g/dL Albumin (3.5-5.1) g/dL Triglycerides 132 (<150) mg/dL Lipase (23-300) U/L Urine Color Dark yellow (Yellow) Urine Appearance Turbid H (Clear) Urine pH 5.5 (5.0-9.0) Ur Specific [place] 1.036 H (1.001-1.035) Urine Protein 2+ H (Negative) mg/dL Urine Glucose (UA) Negative (Negative) mg/dL Urine Ketones 1+ H (Negative) mg/dL Ur Blood (Man) Negative (Negative) Urine Nitrate Negative (Negative) Urine Bilirubin Negative (Negative) Urine Urobilinogen 1.0 (<2.0) mg/dL Add Ur Microanalysis Reviewed Leukocyte Esterase Rfl Negative (Negative) DIONI/UL Urine RBC 0-2 (0-2) /hpf Urine WBC 0-5 (0-3) /hpf Ur Squamous Epith Cells Occasional (Few) /hpf Urine Bacteria None seen /hpf Urine Casts 11-20 <Naila Vicente MD - Last Filed: 12/04/24 08:37> Lab Results 12/04/24 12/04/24 12/04/24 Range/Units 06:05 06:06 06:09 WBC 15.0 H (4.5-10.0) K/mm3 RBC 5.05 (4.6-6.20) M/mm3 Hgb 15.8 (14.0-18.0) g/dL Hct 44.9 (42.0-52.0) % MCV 88.9 (80-100) fl MCH 31.3 (26-34) pg MCHC 35.2 (32-36) g/dl RDW 13.7 (11.5-14.5) % Plt Count 283 (150-375) k/mm3 MPV 11.9 H (7.4-10.4) fl Immature Gran % (Auto) 0.4 (0-0.5) % Neut % (Auto) 76.2 H (45.5-73.1) % Lymph % (Auto) 12.6 L (18.3-44.2) % [place] % (Auto) 7.2 (2.6-8.5) % Eos % (Auto) 3.1 (0-4.4) % Baso % (Auto) 0.5 (0.2-1.2) % Lymph # (Auto) 1.89 (0.9-3.2) K/mm3 [place] # (Auto) 1.1 H (0.1-0.6) K/mm3 Eos # (Auto) 0.5 H (0-0.3) K/mm3 Baso # (Auto) 0.1 (0.0-0.1) K/mm3 Abs Immat Gran (auto) 0.06 H (0.00-0.031) K/mm3 Absolute Neuts (auto) 11.4 H (1.3-6.7) K/mm3 Absolute Nucleated RBC 0.000 (0.0-0.012) K/mm3 Nucleated RBC % 0.0 (0.0-0.2) % D-Dimer 1.54 H (<0.48) ug/mL Sodium 139 (137-145) mmol/L Potassium 3.3 L (3.4-5.0) mmol/L Chloride 104 (98-107) mmol/L Carbon Dioxide 24 (22-30) mmol/L Anion Gap 11 (4-12) mmol/L BUN 15 D (9-20) mg/dL Creatinine 0.84 (0.7-1.3) mg/dL Estim Creat Clear Calc 138 ml/min Estimated GFR > 60 (59 - ) Glucose 115 H (65-110) mg/dL Lactic Acid 1.3 (0.7-2.0) mmol/L Calcium 9.5 (8.4-10.2) mg/dL Magnesium (1.6-2.3) mg/dL Total Bilirubin 0.8 (0.2-1.3) mg/dL AST 42 (17-59) U/L ALT 48 (6-50) U/L Alkaline Phosphatase 96 (38-126) U/L Troponin I < 0.012 (0.000-0.034) ng/mL Total Protein 7.9 (6.3-8.2) g/dL Albumin 4.7 (3.5-5.1) g/dL Triglycerides (<150) mg/dL Lipase 41568 H (23-300) U/L Urine Color (Yellow) Urine Appearance (Clear) Urine pH (5.0-9.0) Ur Specific [place] (1.001-1.035) Urine Protein (Negative) mg/dL Urine Glucose (UA) (Negative) mg/dL Urine Ketones (Negative) mg/dL Ur Blood (Man) (Negative) Urine Nitrate (Negative) Urine Bilirubin (Negative) Urine Urobilinogen (<2.0) mg/dL Add Ur Microanalysis Leukocyte Esterase Rfl (Negative) DIONI/UL Urine RBC (0-2) /hpf Urine WBC (0-3) /hpf Ur Squamous Epith Cells (Few) /hpf Urine Bacteria /hpf Urine Casts 12/04/24 12/04/24 Range/Units 07:34 08:44 WBC (4.5-10.0) K/mm3 RBC (4.6-6.20) M/mm3 Hgb (14.0-18.0) g/dL Hct (42.0-52.0) % MCV (80-100) fl MCH (26-34) pg MCHC (32-36) g/dl RDW (11.5-14.5) % Plt Count (150-375) k/mm3 MPV (7.4-10.4) fl Immature Gran % (Auto) (0-0.5) % Neut % (Auto) (45.5-73.1) % Lymph % (Auto) (18.3-44.2) % [place] % (Auto) (2.6-8.5) % Eos % (Auto) (0-4.4) % Baso % (Auto) (0.2-1.2) % Lymph # (Auto) (0.9-3.2) K/mm3 [place] # (Auto) (0.1-0.6) K/mm3 Eos # (Auto) (0-0.3) K/mm3 Baso # (Auto) (0.0-0.1) K/mm3 Abs Immat Gran (auto) (0.00-0.031) K/mm3 Absolute Neuts (auto) (1.3-6.7) K/mm3 Absolute Nucleated RBC (0.0-0.012) K/mm3 Nucleated RBC % (0.0-0.2) % D-Dimer (<0.48) ug/mL Sodium (137-145) mmol/L Potassium (3.4-5.0) mmol/L Chloride (98-107) mmol/L Carbon Dioxide (22-30) mmol/L Anion Gap (4-12) mmol/L BUN (9-20) mg/dL Creatinine (0.7-1.3) mg/dL Estim Creat Clear Calc ml/min Estimated GFR (59 - ) Glucose (65-110) mg/dL Lactic Acid (0.7-2.0) mmol/L Calcium (8.4-10.2) mg/dL Magnesium 1.8 (1.6-2.3) mg/dL Total Bilirubin (0.2-1.3) mg/dL AST (17-59) U/L ALT (6-50) U/L Alkaline Phosphatase (38-126) U/L Troponin I (0.000-0.034) ng/mL Total Protein (6.3-8.2) g/dL Albumin (3.5-5.1) g/dL Triglycerides 132 (<150) mg/dL Lipase (23-300) U/L Urine Color Dark yellow (Yellow) Urine Appearance Turbid H (Clear) Urine pH 5.5 (5.0-9.0) Ur Specific [place] 1.036 H (1.001-1.035) Urine Protein 2+ H (Negative) mg/dL Urine Glucose (UA) Negative (Negative) mg/dL Urine Ketones 1+ H (Negative) mg/dL Ur Blood (Man) Negative (Negative) Urine Nitrate Negative (Negative) Urine Bilirubin Negative (Negative) Urine Urobilinogen 1.0 (<2.0) mg/dL Add Ur Microanalysis Reviewed Leukocyte Esterase Rfl Negative (Negative) DIONI/UL Urine RBC 0-2 (0-2) /hpf Urine WBC 0-5 (0-3) /hpf Ur Squamous Epith Cells Occasional (Few) /hpf Urine Bacteria None seen /hpf Urine Casts 11-20 <Irvin Medellin MD - Last Filed: 12/04/24 18:09> Imaging Data Radiologist's impression: ITS Impressions Chest X-Ray 12/04/24 06:36 Impression: Normal chest. Chest/Abdomen/Pelvis CTA 12/04/24 07:52 IMPRESSION: 1. Acute pancreatitis with moderate surrounding phlegmonous change. No evidence for pancreatic necrosis, abscess or pseudocyst. MRCP 12/04/24 15:09 IMPRESSION: 1. Acute interstitial pancreatitis with prominent peripancreatic edema and a few acute peripancreatic fluid collections. No organized abscess or acute necrotic collections. 2. Mild dilation the common bile duct to 7 mm and mild central intrahepatic biliary ductal dilation, both which are within normal limits post cholecystectomy. No evident choledocholithiasis or other obstructing lesions. Impressions Chest X-Ray 12/04/24 06:36 Impression: Normal chest. Chest/Abdomen/Pelvis CTA 12/04/24 07:52 IMPRESSION: 1. Acute pancreatitis with moderate surrounding phlegmonous change. No evidence for pancreatic necrosis, abscess or pseudocyst. <Naila Vicente MD - Last Filed: 12/04/24 08:37> ITS Impressions Chest X-Ray 12/04/24 06:36 Impression: Normal chest. Chest/Abdomen/Pelvis CTA 12/04/24 07:52 IMPRESSION: 1. Acute pancreatitis with moderate surrounding phlegmonous change. No evidence for pancreatic necrosis, abscess or pseudocyst. MRCP 12/04/24 15:09 IMPRESSION: 1. Acute interstitial pancreatitis with prominent peripancreatic edema and a few acute peripancreatic fluid collections. No organized abscess or acute necrotic collections. 2. Mild dilation the common bile duct to 7 mm and mild central intrahepatic biliary ductal dilation, both which are within normal limits post cholecystectomy. No evident choledocholithiasis or other obstructing lesions. <Irvin Medellin MD - Last Filed: 12/04/24 18:09> ECG Data EKG #1: Attestation: I personally reviewed and interpreted this ECG as follows: <Naila Vicente MD - Last Filed: 12/04/24 08:37> ECG completion date: 12/04/24 <Naila Vicente MD - Last Filed: 12/04/24 08:37> ECG completion time: 06:09 <Naila Vicente MD - Last Filed: 12/04/24 08:37> Interpretation: Sinus bradycardia at a rate of 51 beats per minute. There is slight R to R variation consistent with sinus arrhythmia, likely due to respiratory variation and otherwise benign. SD interval 1261 milliseconds. QRS 82 milliseconds. QT/QTC 406/384. Good R-wave progression across the precordial leads. No T-wave inversions. Normal axis. <Naila Vicente MD - Last Filed: 12/04/24 08:37> Discharge Plan Discharge Clinical Impression: Leukocytosis, Hypokalemia, Acute pancreatitis <Naila Vicente MD - Last Filed: 12/04/24 08:37> Patient Disposition: Still a Patient <Naila Vicente MD - Last Filed: 12/04/24 08:37> Condition: Stable <Naila Vicente MD - Last Filed: 12/04/24 08:37> Time of Disposition: 08:20 <Naila Vicente MD - Last Filed: 12/04/24 08:37> 08:20 <Irvin Medellin MD - Last Filed: 12/04/24 18:09>
[2024-12-04] MEDS: SODIUM CHLORIDE 0.9% IV 1,000 ML 999 ML IV CONT ×2 (06:27→08:29)
--- OUTSIDE RECORDS SUMMARY | 2024-12-04 06:28 | XMS_ITS | Clinical Summary ---
Author Organization [facility] Address [address] [place] [address] Care Team Providers Care Private Advisor Name Role Phone Penelope Regalado MD Primary Care Provider [phone] Source Comments [facility],non-owned Affiliates and Associated Physician Practices is amultiple site organization consisting of ambulatory clinics and hospital sitesin [place], [place], [place] and [place]. This disclosure is being madepursuant to the Care Everywhere program and may not contain all information available regarding this patient. 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 Gender Identity Not on file Sexual Orientation Not on file Last Filed Vital Signs Vital Sign Reading Time Taken Comments Blood Pressure 116/70 07/04/2022 8:51 AM EXECUTIVE BUSINESS COACH Pulse 68 07/04/2022 8:51 AM EXECUTIVE BUSINESS COACH Temperature 36.6 C (97.8 F) 07/04/2022 8:51 AM EXECUTIVE BUSINESS COACH Respiratory Rate 20 07/04/2022 8:51 AM EXECUTIVE BUSINESS COACH Oxygen Saturation 98% 07/04/2022 8:51 AM EXECUTIVE BUSINESS COACH Inhaled Oxygen Concentration 100% 07/01/2016 9 :38 AM EXECUTIVE BUSINESS COACH Weight 88.6 kg (195 lb 5.2 oz) 07/04/2022 8:51 A M EXECUTIVE BUSINESS COACH Height 175 cm (5' 8.9) 07/04/2022 8:51 AM EXECUTIVE BUSINESS COACH Body Mass Index 28.93 07/04/2022 8:51 AM EXECUTIVE BUSINESS COACH Plan of Treatment Health Maintenance Due Date [...] HEPATITIS SCREEN ACUTE Routine 03/10/2016 3:43 PM EXECUTIVE BUSINESS COACH Elevated transaminase level from Last 3 Months or Most Recently Relevant to Health Maintenance Results * HEPATITIS SCREEN ACUTE (03/10/2016 3:43 PM EXECUTIVE BUSINESS COACH) HAV Antibody IgM Non Reactive Non Reactive 03/11/2016 11:56 AM [facility] HBsAg Non Reactive Non Reactive 03/11/2016 11:56 AM [facility] HBc Antibody IgM Non Reactive Non Reactive 03/11/2016 11:56 AM [facility] HCV Antibody Screen Non Reactive Non Reactive 03/11/2016 11:56 AM [facility] HCV S/C Ratio 0.10 0.00 - 0.79 03/11/2016 11:56 AM [facility] Comment: Zdxpzp-eq-gzhqhz ratio (S/CO) <0.80: Non Reactive Blood BLOOD SPECIMEN / Unknown Lab Venipuncture / Unknown 03/10/2016 3:43 PM EXECUTIVE BUSINESS COACH 03/10/2016 4:41 PM EXECUTIVE BUSINESS COACH Narrative [facility] - 03/11/2016 11:56 AM EXECUTIVE BUSINESS COACH Non Reactive - Antibodies to Hepatitis C virus (HCV) were not detected, result does not exclude early acute HCV infection. Non Reactive - Antibodies to Hepatitis C virus (HCV) were not detected, result does not exclude early acute HCV infection. Markel Gray Jr., MD LAB - CHEMISTRY ORDER EUNICE Final Result Performing Organization Address City/State/[facility] Co de Phone Number [facility] [address] [place] [address] from Last 3 Months or Most Recently Relevant to Health Maintenance Insurance SELF PAY NO INSURANCE Member Subscriber Plan / Payer (Ef fective for All Dates) Name:Lj Rincon Member ID:Not on file Relation to Subscriber:Not on file Name:LJ RINCON Subscriber ID:Not on file (Home) Address: [address] [place] [id number] Payer ID:Not on file Group ID:Not on file Type:Self Pay Address: [facility] [place] [facility] [place]ICAID - [place] [facility] Advance Directives * Full Code (Latest Code Status on File) Date Activated Date Inactivated Comments 11/13/2015 2:05 AM 11/13/2015 8:49 PM Care Teams Private Advisor Relationship Specialty Start Date End Date Penelope Regalado MD [address] [place] [id number] PCP - General Pediatrics 07/04/22
--- OUTSIDE RECORDS SUMMARY | 2024-12-04 06:28 | XMS_ITS | Clinical Summary ---
Author Organization [facility] Address [address] [place] [address] Phone Care Team Providers Care Tip Stitcher Name Role Phone Vincenzo Villafana MD Primary Care Provider [phone] Allergies No known active allergies Medications No [...] Comments Blood Pressure 121/69 04/07/2016 10:11 AM TELEVISION STATION MANAGER Pulse 106 04/07/2016 10:11 AM TELEVISION STATION MANAGER Temperature 36.1 C (97 F) 04/07/2016 10:11 AM TELEVISION STATION MANAGER Respiratory Rate 20 04/07/2016 10:11 AM TELEVISION STATION MANAGER Oxygen Saturation 96% 04/07/2016 10:11 AM TELEVISION STATION MANAGER Inhaled Oxygen Concentration - - Weight 59.6 kg (131 lb 6 oz) 04/07/2016 10:11 AM TELEVISION STATION MANAGER Height 147.3 cm (4' 10) 04/07/2016 10:11 AM TELEVISION STATION MANAGER Body Mass Index 27.46 04/07/2016 10:11 AM TELEVISION STATION MANAGER Plan of Treatment Health Maintenance Due Date [...] [facility] [facility] on file Care Teams Tip Stitcher Relationship Specialty Start Date End Date Vincenzo Villafana MD [address] [place] [address] PCP - General Pediatrics 04/07/16
--- OUTSIDE RECORDS SUMMARY | 2024-12-04 06:28 | XMS_ITS | Encounter Summary ---
Author Organization [facility] Address [address] [place] [address] Care Team Providers Care Human Resources Director Name Role Phone Vincenzo Villafana MD Primary Care Provider [phone] [facility] Primary Care Provider Vincenzo Villafana MD Primary Care Provider [phone] Penelope Regalado MD Primary Care Provider [phone] Reason for Visit * Reason Onset Date Comments Scheduling 06/17/2016 Encounter Details Date Type Department Care Team (Late st Contact Info) Description 06/17/2016 Telephone [place] [id number] [place] [address] Markel Gray Jr., MD [address] [place] [id number] Scheduling Social History Tobacco Use Types Packs/Day Years Used Date Smoking Tobacco: Never Alcohol Use Standard Drinks/Week Comments No 0 (1 standard drink = 0.6 oz pur e alcohol) Sex and Gender Information Value Date Recorded Sex Assigned at Not on file Legal 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 Patient to arrive 2 hours early. F MIDWIFE/APPRENTICESHIP DIRECTOR documented in this encounter Plan of Treatment Not on file documented as of this encounter Visit Diagnoses Not on filedocumented in this encounter Care Teams Human Resources Director Relationship Specialty Start Date End Date Vincenzo Villafana MD [address] [place] [phone] PCP - General Pediatrics 11/12/15 07/25/18 [facility] [address] [place] [id number] PCP - General Family Medicine 07/26/18 05/04/22 Vincenzo Villafana MD [address] [place] [id number] PCP - General 05/05/22 07/03/22 Penelope Regalado MD [address] [place] [id number] PCP - General Pediatrics 07/04/22 documented as of this encounter
[2024-12-04 06:34] LABS: Hematocrit 44.9 % (42.0-52.0); Hemoglobin 15.8 g/dL (14.0-18.0); Immature Granulocyte Percent A 0.4 % (0-0.5); Lymphocytes Absolute Auto 1.89 K/mm3 (0.9-3.2); Mean Corpuscular HGB Conc 35.2 g/dl (32-36); Mean Corpuscular Hemoglobin 31.3 pg (26-34); Mean Corpuscular Volume 88.9 fl (80-100); Nucleated Red Blood Cells Absolute Auto 0.000 K/mm3 (0.0-0.012); Nucleated Red Blood Cells Perc 0.0 % (0.0-0.2); Platelet Count Result 283 k/mm3 (150-375); Red Blood Count 5.05 M/mm3 (4.6-6.20); White Blood Count 15.0 K/mm3 (4.5-10.0)
[2024-12-04] MEDS: FAMOTIDINE 20 MG/2 ML VIAL IV PUSH ×2 (06:58→20:13)
[2024-12-04] MEDS: HYDROmorphone HCL INJ (*CRX) 2 MG/ML VIAL 0.5 MG IV PUSH (07:12)
[2024-12-04 07:18] LABS: Alanine Aminotransferase 48 U/L (6-50); Albumin Level 4.7 g/dL (3.5-5.1); Alkaline Phosphatase 96 U/L (38-126); Anion Gap 11 mmol/L (4-12); Aspartate Amino Transferase 42 U/L (17-59); Bilirubin,Total 0.8 mg/dL (0.2-1.3); Blood Urea Nitrogen 15 mg/dL (9-20); Calcium 9.5 mg/dL (8.4-10.2); Carbon Dioxide 24 mmol/L (22-30); Chloride 104 mmol/L (98-107); Estimated CRCL calculation 138 ml/min; Estimated Glomerular Filt Rate > 60; Glucose 115 mg/dL (65-110); Potassium 3.3 mmol/L (3.4-5.0); Sodium 139 mmol/L (137-145); Total Protein 7.9 g/dL (6.3-8.2)
[2024-12-04 07:29] LABS: Troponin I < 0.012 ng/mL (0.000-0.034)
[2024-12-04] MEDS: ONDANSETRON INJ 4 MG/2 ML VIAL IV PUSH ×2 (07:34→09:47)
[2024-12-04 07:53] LABS: Add Urine Microscopic? YES; Appearance Urine Turbid (Clear); Glucose Urine UA Negative (Negative); Leukocyte Esterase Ur Negative LEU/UL (Negative); Need Manual Microscopic Reviewed; Nitrate Urine Negative (Negative); Specific Grav Ur 1.036 (1.001-1.035)
[2024-12-04] MEDS: POTASSIUM BICARBONATE 25 MEQ TABEF PO (08:29)
[2024-12-04 08:47] LABS: Lipase 21909 U/L (23-300)
[2024-12-04 09:16] LABS: Triglycerides 132 mg/dL (<150)
[2024-12-04 09:17] LABS: Magnesium 1.8 mg/dL (1.6-2.3)
[2024-12-04] MEDS: LACTATED RINGERS 1,000 ML 200 ML IV CONT ×3 (09:46→21:34)
[2024-12-04] MEDS: MORPHINE SULFATE (*CRX) 4 MG/ML INJ IV PUSH ×4 (09:47→20:14)
--- NOTE | 2024-12-04 10:25 | PC.NURSE ---
This patient, Lj Gil, was admitted to [facility] Surg Room 332-02. Patient/family oriented to hospital policies and general routines including ID bracelet, bed and alarms, visiting hours, pain management, procedures, bathroom and other care routines, personal items, smoking policy, room service/diet, and visiting hours. Information on how to activate the Rapid Response Team has been discussed. Patient/Family are encouraged to report perceived risks to care and to ask questions if they do not understand what they are told or what they should do.
--- NOTE | 2024-12-04 16:26 | PM.IMHP ---
H&P: HPI History of Present Illness Date/Time: 12/04/24 16:26 Chief Complaint: Abdominal pain nausea and vomiting Narrative: Patient with history of pancreatitis status post cholecystectomy presents to [facility] ER on 12/04/2024 with abdominal pain nausea and vomiting. History is gathered from ER report. Mother present in room interferes with history taking as she continuously demand answers that are not available. Review of Systems Review of Systems: All systems reviewed & are unremarkable except as noted in HPI and below (Subjective) [facility] Past Medical History Medical History (Updated 12/04/24 @ 08:14 by Naila Vicente MD) Pancreatitis Surgical History Surgical History History of liver biopsy to test for fatty liver History of laparoscopic cholecystectomy 12/24/2023 - laparoscopic cholecystectomy with intraoperative cholangiogram Social History Social History Smoking status: Never smoker Alcohol intake: never Substance use: never Substance use type: does not use Do You Feel Safe in your Home?: Yes Lack of Transportation: No Lack of Food: Never True Current Housing: I Have Housing Concerned About Future Housing: Decline to Answer Difficulty Paying Gas/Electric Bills: Decline to Answer Difficulty Paying for Meds: Decline to Answer Currently Unemployed: Decline to Answer Education: High School Diploma/GED Difficulty w/ Childcare or Family Care: Decline to Answer Gender identity (if verbalized by the patient): Male Spiritual care concerns: No Meds Home Medications and Allergies Home Medications ?Medication ?Instructions ?Recorded ?Confirmed ?Type cetirizine 10 mg tablet (Zyrtec) 10 mg PO DAILY PRN allergy 03/22/24 12/04/24 Rx symptoms #30 tabs Allergies Allergy/AdvReac Type Severity Reaction Status Date / Time No Known Allergies Allergy Unknown Verified 12/04/24 11:31 Vital Signs Vital Signs - 24 hr 12/04/24 05:38 12/04/24 06:28 12/04/24 07:18 Temperature 97.6 F Pulse Rate 70 53 L 55 L Respiratory Rate 19 18 17 Blood Pressure 138/71 132/70 121/60 Pulse Oximetry 100 99 100 Oxygen Delivery Room Air Room Air 12/04/24 08:57 12/04/24 10:20 12/04/24 10:30 Temperature 97.3 F L Pulse Rate 52 L 76 64 Respiratory Rate 13 15 14 Blood Pressure 138/71 132/79 128/73 Pulse Oximetry 100 97 100 Oxygen Delivery 12/04/24 10:30 12/04/24 14:00 Temperature 97.1 F L Pulse Rate 60 Respiratory Rate 14 Blood Pressure 137/71 Pulse Oximetry 98 Oxygen Delivery Room Air Exam Const: General: comfortable and no acute distress HENMT: Mouth: Yes moist mucous membranes Eyes: Pupils: Equal, round and reactive pupils present Neck: Neck: supple Resp: Effort & Inspection: normal respiratory effort Auscultation: clear to auscultation bilaterally Cardio: Rate: regular rate Rhythm: regular rhythm GI: Inspection: non-distended GI Palp: No Guarding due to palpation present (GI) Neuro: Motor exam (neuro): 5/5 motor strength present throughout Extrem: General: no edema H&P: Results Labs Labs: Short CBC 12/04/24 Range/Units 06:06 WBC 15.0 H (4.5-10.0) K/mm3 Hgb 15.8 (14.0-18.0) g/dL Hct 44.9 (42.0-52.0) % Plt Count 283 (150-375) k/mm3 BMP 12/04/24 06:06 Sodium 139 Potassium 3.3 L Chloride 104 Carbon Dioxide 24 BUN 15 D Creatinine 0.84 Glucose 115 H Calcium 9.5 Cardiac Enzymes 12/04/24 Range/Units 06:06 Troponin I < 0.012 (0.000-0.034) ng/mL Liver Function 12/04/24 Range/Units 06:06 Total Bilirubin 0.8 (0.2-1.3) mg/dL AST 42 (17-59) U/L ALT 48 (6-50) U/L Alkaline Phosphatase 96 (38-126) U/L Albumin 4.7 (3.5-5.1) g/dL Urine 12/04/24 Range/Units 07:34 Urine Color Dark yellow (Yellow) Urine Appearance Turbid H (Clear) Urine pH 5.5 (5.0-9.0) Ur Specific [place] 1.036 H (1.001-1.035) Urine Protein 2+ H (Negative) mg/dL Urine Glucose (UA) Negative (Negative) mg/dL Assessment and Plan Assessment and plan (1) Acute pancreatitis: Qualifiers: Acute pancreatitis complication: no infection or necrosis Pancreatitis type: unspecified pancreatitis type Qualified Code(s): K85.90 - Acute pancreatitis without necrosis or infection, unspecified Code(s): K85.90 - Acute pancreatitis without necrosis or infection, unspecified Status: Acute Plan At this time we will treat acute pancreatitis with bowel rest, lactated Ringer infusion, pain management p.r.n., Pepcid, antiemetic. MRCP pending and we will follow GI recommendations. Patient is stable. Full code. Heparin subQ 5000 units t.i.d. Hospitalist [facility] Advance Care Plan I have confirmed that the patient's Advanced Care Plan is present, code status is documented, or surrogate decision maker is listed in patient medical record.: Yes Medication Reconciliation I have utilized all available resources to obtain, update and review the patients current medications (includes all prescriptions, OTC, herbals, cannabis, and nutritional supplements).: Yes
--- NOTE | 2024-12-04 16:41 | P.CONGI_ITS ---
Assessment and Plan Assessment and plan (1) Acute pancreatitis: Qualifiers: Acute pancreatitis complication: no infection or necrosis Pancreatitis type: unspecified pancreatitis type Qualified Code(s): K85.90 - Acute pancreatitis without necrosis or infection, unspecified Code(s): K85.90 - Acute pancreatitis without necrosis or infection, unspecified Status: Acute Assessment and Plan: associated in the past to biliary source and underwent lap fern pending mrcp started on LR iv fluids calculated based on weight continue with medical support monitor h/h and renal function (2) Epigastric abdominal pain: Code(s): R10.13 - Epigastric pain Status: Resolved (3) Nausea and vomiting in adult: Code(s): R11.2 - Nausea with vomiting, unspecified Status: Acute (4) History of laparoscopic cholecystectomy: Code(s): Z90.49 - Acquired absence of other specified parts of digestive tract Status: Acute GI Consult Note Consult date/time: 12/04/24 16:41 Reason for consult: pancreatitis HPI: Lj Gil is a 19 year old male with recurrent pancreatitis (first episode Mar 2023 then May 2023 and finally Nov 2023- underwent lap cholecystectomy because cholelithiasis- though to be cause of pancreatitis). He came here with new onset of severe epigastric pain with nausea and vomiting, diagnosed again with pancreatitis with lipase 21k, normal liver enzymes, hgb 15.8. Start appropriately on IVF with LR, pain meds and npo status. Review of Systems 2 Constitutional: Constitutional: Denies chills Eyes: Eyes: Denies blurry vision ENT: Reports Normal hearing present Cardiovascular: Cardiovascular: Denies chest pain Respiratory: Respiratory: Denies cough Gastrointestinal: Gastrointestinal: Reports abdominal pain and Reports nausea Genitourinary: Genitourinary: Denies dysuria Musculoskeletal: Musculoskeletal: Denies neck pain Integumentary/Breasts: Skin/Breast: Denies dry skin Neurologic: Denies Abnormal speech present Psychiatric: Psychiatric: Denies behavioral changes [facility] Past Medical History Medical History (Updated 12/04/24 @ 16:44 by Mikey Garza MD) Nausea and vomiting in adult Pancreatitis Surgical History Surgical History (Updated 12/04/24 @ 16:44 by Mikey Garza MD) History of liver biopsy to test for fatty liver History of laparoscopic cholecystectomy 12/24/2023 - laparoscopic cholecystectomy with intraoperative cholangiogram Social History Social History Smoking status: Never smoker Alcohol intake: never Substance use: never Substance use type: does not use Do You Feel Safe in your Home?: Yes Lack of Transportation: No Lack of Food: Never True Current Housing: I Have Housing Concerned About Future Housing: Decline to Answer Difficulty Paying Gas/Electric Bills: Decline to Answer Difficulty Paying for Meds: Decline to Answer Currently Unemployed: Decline to Answer Education: High School Diploma/GED Difficulty w/ Childcare or Family Care: Decline to Answer Gender identity (if verbalized by the patient): Male Spiritual care concerns: No Meds Home Medications and Allergies Home Medications ?Medication ?Instructions ?Recorded ?Confirmed ?Type cetirizine 10 mg tablet (Zyrtec) 10 mg PO DAILY PRN allergy 03/22/24 12/04/24 Rx symptoms #30 tabs Allergies Allergy/AdvReac Type Severity Reaction Status Date / Time No Known Allergies Allergy Unknown Verified 12/04/24 11:31 Vital Signs Vital Signs - 24 hr 12/04/24 05:38 12/04/24 06:28 12/04/24 07:18 Temperature 97.6 F Pulse Rate 70 53 L 55 L Respiratory Rate 19 18 17 Blood Pressure 138/71 132/70 121/60 Pulse Oximetry 100 99 100 Oxygen Delivery Room Air Room Air 12/04/24 08:57 12/04/24 10:20 12/04/24 10:30 Temperature 97.3 F L Pulse Rate 52 L 76 64 Respiratory Rate 13 15 14 Blood Pressure 138/71 132/79 128/73 Pulse Oximetry 100 97 100 Oxygen Delivery 12/04/24 10:30 12/04/24 14:00 Temperature 97.1 F L Pulse Rate 60 Respiratory Rate 14 Blood Pressure 137/71 Pulse Oximetry 98 Oxygen Delivery Room Air Exam 2 Const: General: comfortable and no acute distress HENMT: Face/Nose/Sinus: Normal nares present Eyes: General: appearance normal, both eyes and all related structures Neck: Neck: supple Resp: Auscultation: clear to auscultation bilaterally Cardio: Rate: regular rate Rhythm: regular rhythm GI: Inspection: non-distended GI Palp: Yes Soft to palpation and Yes Tenderness to palpation present (GI) (mild ttp, no rebound) Auscultation: n ormal bowel sounds Skin: General skin exam: normal color Neuro: General: gait normal Speech: normal speech Extrem: General: normal to inspection Psych: Mental Status: mental status grossly normal Results Labs 12/04/24 06:06 12/04/24 06:06 Labs: Short CBC 12/04/24 Range/Units 06:06 WBC 15.0 H (4.5-10.0) K/mm3 Hgb 15.8 (14.0-18.0) g/dL Hct 44.9 (42.0-52.0) % Plt Count 283 (150-375) k/mm3 BMP 12/04/24 06:06 Sodium 139 Potassium 3.3 L Chloride 104 Carbon Dioxide 24 BUN 15 D Creatinine 0.84 Glucose 115 H Calcium 9.5 Cardiac Enzymes 12/04/24 Range/Units 06:06 Troponin I < 0.012 (0.000-0.034) ng/mL Liver Function 12/04/24 Range/Units 06:06 Total Bilirubin 0.8 (0.2-1.3) mg/dL AST 42 (17-59) U/L ALT 48 (6-50) U/L Alkaline Phosphatase 96 (38-126) U/L Albumin 4.7 (3.5-5.1) g/dL Urine 12/04/24 Range/Units 07:34 Urine Color Dark yellow (Yellow) Urine Appearance Turbid H (Clear) Urine pH 5.5 (5.0-9.0) Ur Specific [place] 1.036 H (1.001-1.035) Urine Protein 2+ H (Negative) mg/dL Urine Glucose (UA) Negative (Negative) mg/dL
[2024-12-05] MEDS: LACTATED RINGERS 1,000 ML 200 ML IV CONT ×3 (02:40→12:19)
[2024-12-05] MEDS: MORPHINE SULFATE (*CRX) 4 MG/ML INJ IV PUSH ×2 (02:42→09:52)
[2024-12-05 05:09] VITALS: BP 125/67; PULSE 101; RESP 16; TEMP 37.2; O2SAT 96
[2024-12-05 06:18] LABS: Hematocrit 41.6 % (42.0-52.0); Hemoglobin 15.0 g/dL (14.0-18.0); Immature Granulocyte Percent A 0.7 % (0-0.5); Lymphocytes Absolute Auto 1.55 K/mm3 (0.9-3.2); Mean Corpuscular HGB Conc 36.1 g/dl (32-36); Mean Corpuscular Hemoglobin 31.9 pg (26-34); Mean Corpuscular Volume 88.5 fl (80-100); Nucleated Red Blood Cells Absolute Auto 0.000 K/mm3 (0.0-0.012); Nucleated Red Blood Cells Perc 0.0 % (0.0-0.2); Platelet Count Result 231 k/mm3 (150-375); Red Blood Count 4.70 M/mm3 (4.6-6.20); White Blood Count 13.7 K/mm3 (4.5-10.0)
[2024-12-05 06:34] LABS: Alanine Aminotransferase 32 U/L (6-50); Albumin Level 3.9 g/dL (3.5-5.1); Alkaline Phosphatase 82 U/L (38-126); Anion Gap 7 mmol/L (4-12); Aspartate Amino Transferase 38 U/L (17-59); Bilirubin,Total 1.2 mg/dL (0.2-1.3); Blood Urea Nitrogen 5 mg/dL (9-20); Calcium 8.7 mg/dL (8.4-10.2); Carbon Dioxide 26 mmol/L (22-30); Chloride 102 mmol/L (98-107); Estimated CRCL calculation 167 ml/min; Estimated Glomerular Filt Rate > 60; Glucose 92 mg/dL (65-110); Magnesium 1.8 mg/dL (1.6-2.3); Potassium 3.4 mmol/L (3.4-5.0); Sodium 135 mmol/L (137-145); Total Protein 6.5 g/dL (6.3-8.2)
[2024-12-05 06:50] LABS: Procalcitonin < 0.0 ng/mL
[2024-12-05 08:00] VITALS: O2SAT 96
[2024-12-05] MEDS: FAMOTIDINE 20 MG/2 ML VIAL IV PUSH ×2 (08:52→20:51)
[2024-12-05 14:00] VITALS: BP 126/74; PULSE 98; RESP 18; TEMP 37.2; O2SAT 97
--- NOTE | 2024-12-05 14:19 | P.PNGI_ITS ---
Progress Note: A&P Assessment and Plan (1) Abdominal pain: Code(s): R10.9 - Unspecified abdominal pain Status: Acute Assessment and Plan: advancing diet hopefully home tomorrow (2) Acute pancreatitis: Code(s): K85.90 - Acute pancreatitis without necrosis or infection, unspecified Status: Acute Assessment and Plan: recurrent pancreatitis, had 3 episodes and finally underwent lap fern (probably was biliary related) mrcp without stones explained to mother that once you had more than 2 episodes is not unusual to have more without major triggers but will refer to see outpatient pancreatologist (3) Nausea and vomiting in adult: Code(s): R11.2 - Nausea with vomiting, unspecified Status: Acute Assessment and Plan: resolved Subjective Date/time seen: 12/05/24 14:19 Interval history: pain almost gone, last time needed pain med at 2 am still bloated but overall better mother at bedside, asking if we can refer to pancreatologist in [place] Review of Systems Review of Systems: All systems reviewed & are unremarkable except as noted in HPI and below Exam Const: General: comfortable and no acute distress HENMT: Face/Nose/Sinus: Normal nares present Eyes: General: appearance normal, both eyes and all related structures Neck: Neck: supple Resp: Auscultation: clear to auscultation bilaterally Cardio: Rate: regular rate Rhythm: regular rhythm GI: Inspection: non-distended GI Palp: Yes Soft to palpation and No Tenderness to palpation present (GI) Auscultation: normal bowel sounds Skin: General skin exam: normal color Neuro: General: gait normal Speech: normal speech Extrem: General: normal to inspection Psych: Mental Status: mental status grossly normal Objective Data Vital Signs Vital Signs: Vital Signs - 24 hr 12/04/24 21:18 12/05/24 05:09 12/05/24 08:00 Temperature 97.9 F 99.0 F Pulse Rate 93 101 H Respiratory Rate 14 16 Blood Pressure 134/67 125/67 Pulse Oximetry 98 96 96 Oxygen Delivery Room Air Intake/Output Intake/Output: Intake & Output 12/02/24 12/03/24 12/04/24 12/05/24 23:59 23:59 23:59 23:59 Intake Total 4000 2930.0 Balance 4000 2930.0 Meds/Results Medications: Active Medications Generic Name Dose Route Start Last Admin Trade Name Freq PRN Reason Stop Dose Admin Famotidine 20 mg 12/04/24 21:00 12/05/24 08:52 Famotidine 20 Mg/2 Ml Vial IV PUSH 20 mg Q12HR NAZIA Administration Heparin Sodium (Porcine) 5,000 units 12/04/24 22:00 12/05/24 05:42 Heparin Sodium 5,000 Units/Ml Vial SUB-Q 5,000 units Q8HR NAZIA Administration Lactated Ringer's 1,000 mls @ 200 mls/hr 12/04/24 09:25 12/05/24 12:19 Lr - Lactated Ringers Iv IV CONT 200 mls/hr .Q5H NAZIA Administration Morphine Sulfate 4 mg 12/04/24 09:22 12/05/24 09:52 Morphine Sulfate (*Crx) 4 Mg/Ml Inj IV PUSH 4 mg Q2H PRN Administration Pain Rated 7-10 Ondansetron HCl 4 mg 12/04/24 09:22 12/04/24 09:47 Ondansetron Inj 4 Mg/2 Ml Vial IV PUSH 4 mg Q4H PRN Administration Nausea Radiology Results: ITS Impressions Chest X-Ray 12/04/24 06:36 Impression: Normal chest. Chest/Abdomen/Pelvis CTA 12/04/24 07:52 IMPRESSION: 1. Acute pancreatitis with moderate surrounding phlegmonous change. No evidence for pancreatic necrosis, abscess or pseudocyst. MRCP 12/04/24 15:09 IMPRESSION: 1. Acute interstitial pancreatitis with prominent peripancreatic edema and a few acute peripancreatic fluid collections. No organized abscess or acute necrotic collections. 2. Mild dilation the common bile duct to 7 mm and mild central intrahepatic biliary ductal dilation, both which are within normal limits post cholecystectomy. No evident choledocholithiasis or other obstructing lesions. Labs Labs: Laboratory Results - last 24 hr 12/05/24 05:37 WBC 13.7 H RBC 4.70 Hgb 15.0 Hct 41.6 L MCV 88.5 MCH 31.9 MCHC 36.1 H RDW 13.5 Plt Count 231 MPV 11.9 H Immature Gran % (Auto) 0.7 H Neut % (Auto) 78.0 H Lymph % (Auto) 11.3 L [place] % (Auto) 8.9 H Eos % (Auto) 0.7 Baso % (Auto) 0.4 Lymph # (Auto) 1.55 [place] # (Auto) 1.2 H Eos # (Auto) 0.1 Baso # (Auto) 0.1 Abs Immat Gran (auto) 0.10 H Absolute Neuts (auto) 10.7 H Absolute Nucleated RBC 0.000 Nucleated RBC % 0.0 Sodium 135 L Potassium 3.4 Chloride 102 Carbon Dioxide 26 Anion Gap 7 BUN 5 L D Creatinine 0.70 Estim Creat Clear Calc 167 Estimated GFR > 60 Glucose 92 Calcium 8.7 Phosphorus 3.0 Magnesium 1.8 Total Bilirubin 1.2 AST 38 ALT 32 Alkaline Phosphatase 82 Total Protein 6.5 Albumin 3.9 Procalcitonin < 0.0
[2024-12-05] MEDS: KETOROLAC 15 MG/ML VIAL (*BKC) IV PUSH (15:04)
--- NOTE | 2024-12-05 15:39 | PM.IMPN ---
Progress Note: A&P Assessment and Plan (1) Nausea and vomiting in adult: Code(s): R11.2 - Nausea with vomiting, unspecified Status: Acute (2) Leukocytosis: Code(s): D72.829 - Elevated white blood cell count, unspecified Status: Acute Plan 19-year-old male with history of recurrent pancreatitis, 03/2023, 03/2024, 11/2023, status post lap cholecystectomy due to cholecystitis. He presents again on 12/04/2024 with severe epigastric pain with nausea and vomiting. His lipase elevated at 21,000 one thousand. Normal liver enzymes including total bilirubin. Leukocytosis. Being treated for pancreatitis. Leukocytosis is improving. GI consultation appreciated. Advanced diet as tolerated. Continue pain control p.r.n.. Decreased lactated Ringer's from 250 cc to 100 cc. He is being referred to an outpatient pancreatologist. Patient wishes to be full code. Heparin 8000 units subQ t.i.d.. Lactated Ringer's, advanced diet as tolerated. Subjective Date/time seen: 12/05/24 15:39 Interval history: No major acute overnight events. Patient complains of mild headache, reports he has a headache every few weeks at home and is resolved by sleeping. Otherwise he is tolerating a diet at a slow pace and his abdominal pain is stable at 3/10. Review of Systems Review of Systems: All systems reviewed & are unremarkable except as noted in HPI and below (Subjective) Exam Const: General: comfortable and no acute distress HENMT: Mouth: Yes moist mucous membranes Eyes: Pupils: Equal, round and reactive pupils present Neck: Neck: supple Resp: Effort & Inspection: normal respiratory effort Auscultation: clear to auscultation bilaterally Cardio: Rate: regular rate Rhythm: regular rhythm GI: Inspection: non-distended GI Palp: No Guarding due to palpation present (GI) Neuro: Motor exam (neuro): 5/5 motor strength present throughout Extrem: General: no edema Objective Data Vital Signs Vital Signs: Vital Signs - 24 hr 12/04/24 21:18 12/05/24 05:09 12/05/24 08:00 Temperature 97.9 F 99.0 F Pulse Rate 93 101 H Respiratory Rate 14 16 Blood Pressure 134/67 125/67 Pulse Oximetry 98 96 96 Oxygen Delivery Room Air 12/05/24 14:00 Temperature 99.0 F Pulse Rate 98 Respiratory Rate 18 Blood Pressure 126/74 Pulse Oximetry 97 Oxygen Delivery Intake/Output Intake/Output: Intake & Output 12/02/24 12/03/24 12/04/24 12/05/24 23:59 23:59 23:59 23:59 Intake Total 4000 2930.0 Balance 4000 2930.0 Meds/Results Medications: Active Medications Generic Name Dose Route Start Last Admin Trade Name Freq PRN Reason Stop Dose Admin Famotidine 20 mg 12/04/24 21:00 12/05/24 08:52 Famotidine 20 Mg/2 Ml Vial IV PUSH 20 mg Q12HR NAZIA Administration Heparin Sodium (Porcine) 5,000 units 12/04/24 22:00 12/05/24 15:05 Heparin Sodium 5,000 Units/Ml Vial SUB-Q 5,000 units Q8HR NAZIA Administration Lactated Ringer's 1,000 mls @ 100 mls/hr 12/04/24 09:25 12/05/24 12:19 Lr - Lactated Ringers Iv IV CONT 200 mls/hr .Q10H NAZIA Administration Morphine Sulfate 4 mg 12/04/24 09:22 12/05/24 09:52 Morphine Sulfate (*Crx) 4 Mg/Ml Inj IV PUSH 4 mg Q2H PRN Administration Pain Rated 7-10 Ondansetron HCl 4 mg 12/04/24 09:22 12/04/24 09:47 Ondansetron Inj 4 Mg/2 Ml Vial IV PUSH 4 mg Q4H PRN Administration Nausea Radiology Results: ITS Impressions Chest X-Ray 12/04/24 06:36 Impression: Normal chest. Chest/Abdomen/Pelvis CTA 12/04/24 07:52 IMPRESSION: 1. Acute pancreatitis with moderate surrounding phlegmonous change. No evidence for pancreatic necrosis, abscess or pseudocyst. MRCP 12/04/24 15:09 IMPRESSION: 1. Acute interstitial pancreatitis with prominent peripancreatic edema and a few acute peripancreatic fluid collections. No organized abscess or acute necrotic collections. 2. Mild dilation the common bile duct to 7 mm and mild central intrahepatic biliary ductal dilation, both which are within normal limits post cholecystectomy. No evident choledocholithiasis or other obstructing lesions. Labs Labs: Laboratory Results - last 24 hr 12/05/24 05:37 WBC 13.7 H RBC 4.70 Hgb 15.0 Hct 41.6 L MCV 88.5 MCH 31.9 MCHC 36.1 H RDW 13.5 Plt Count 231 MPV 11.9 H Immature Gran % (Auto) 0.7 H Neut % (Auto) 78.0 H Lymph % (Auto) 11.3 L [place] % (Auto) 8.9 H Eos % (Auto) 0.7 Baso % (Auto) 0.4 Lymph # (Auto) 1.55 [place] # (Auto) 1.2 H Eos # (Auto) 0.1 Baso # (Auto) 0.1 Abs Immat Gran (auto) 0.10 H Absolute Neuts (auto) 10.7 H Absolute Nucleated RBC 0.000 Nucleated RBC % 0.0 Sodium 135 L Potassium 3.4 Chloride 102 Carbon Dioxide 26 Anion Gap 7 BUN 5 L D Creatinine 0.70 Estim Creat Clear Calc 167 Estimated GFR > 60 Glucose 92 Calcium 8.7 Phosphorus 3.0 Magnesium 1.8 Total Bilirubin 1.2 AST 38 ALT 32 Alkaline Phosphatase 82 Total Protein 6.5 Albumin 3.9 Procalcitonin < 0.0
[2024-12-05] MEDS: LACTATED RINGERS 1,000 ML 100 ML IV CONT (18:05)
[2024-12-05 20:54] VITALS: O2SAT 97
[2024-12-05 21:17] VITALS: BP 122/72; PULSE 89; RESP 14; TEMP 37.9; O2SAT 98
[2024-12-06] MEDS: LACTATED RINGERS 1,000 ML 100 ML IV CONT (03:56)
[2024-12-06] MEDS: HYDROcodone/acetaminophen (*CRX) 5-325 MG TABLET 1 TAB PO (04:40)
[2024-12-06 05:18] VITALS: BP 126/70; PULSE 95; RESP 12; TEMP 37.3; O2SAT 98
[2024-12-06 06:35] LABS: Hematocrit 38.8 % (42.0-52.0); Hemoglobin 14.0 g/dL (14.0-18.0); Immature Granulocyte Percent A 0.3 % (0-0.5); Lymphocytes Absolute Auto 1.56 K/mm3 (0.9-3.2); Mean Corpuscular HGB Conc 36.1 g/dl (32-36); Mean Corpuscular Hemoglobin 31.9 pg (26-34); Mean Corpuscular Volume 88.4 fl (80-100); Nucleated Red Blood Cells Absolute Auto 0.000 K/mm3 (0.0-0.012); Nucleated Red Blood Cells Perc 0.0 % (0.0-0.2); Platelet Count Result 232 k/mm3 (150-375); Red Blood Count 4.39 M/mm3 (4.6-6.20); White Blood Count 11.6 K/mm3 (4.5-10.0)
[2024-12-06 07:05] LABS: Anion Gap 11 mmol/L (4-12); Blood Urea Nitrogen 5 mg/dL (9-20); Calcium 8.7 mg/dL (8.4-10.2); Carbon Dioxide 24 mmol/L (22-30); Chloride 100 mmol/L (98-107); Estimated CRCL calculation 165 ml/min; Estimated Glomerular Filt Rate > 60; Glucose 79 mg/dL (65-110); Magnesium 1.8 mg/dL (1.6-2.3); Sodium 135 mmol/L (137-145)
[2024-12-06 07:12] LABS: Potassium 3.2 mmol/L (3.4-5.0)
--- NOTE | 2024-12-06 07:20 | WPDGIPROGNO ---
Progress Note: A&P Assessment and Plan (1) Acute pancreatitis: Qualifiers: Acute pancreatitis complication: no infection or necrosis Pancreatitis type: unspecified pancreatitis type Qualified Code(s): K85.90 - Acute pancreatitis without necrosis or infection, unspecified Code(s): K85.90 - Acute pancreatitis without necrosis or infection, unspecified Status: Acute Assessment and Plan: the patient is tolerating feeding well. No recurrent abdominal pain. After resolution of acute pancreatitis in a patient who had laparoscopic cholecystectomy for gallstones, the main suspicion should be remaining biliary sludge/ small stones in the common bile duct, not seen on MRCP. Therefore, I already put a referral for [facility] for endoscopic sonogram to be scheduled hopefully soon. Please make sure the updated patient's phone numbers are all in the chart so he can be contacted directly. Subjective Date/time seen: 12/06/24 07:20 Objective Data Vital Signs Vital Signs: Vital Signs - 24 hr 12/05/24 08:00 12/05/24 14:00 12/05/24 20:54 Temperature 99.0 F Pulse Rate 98 Respiratory Rate 18 Blood Pressure 126/74 Pulse Oximetry 96 97 97 Oxygen Delivery Room Air Room Air 12/05/24 21:00 12/05/24 21:17 12/06/24 05:18 Temperature 100.2 F H 99.1 F Pulse Rate 89 95 Respiratory Rate 14 12 Blood Pressure 122/72 126/70 Pulse Oximetry 98 98 Oxygen Delivery Room Air Intake/Output Intake/Output: Intake & Output 12/03/24 12/04/24 12/05/24 12/06/24 23:59 23:59 23:59 23:59 Intake Total 4000 4691.7 1085 Balance 4000 4691.7 1085 Meds/Results Medications: Active Medications Generic Name Dose Route Start Last Admin Trade Name Freq PRN Reason Stop Dose Admin Acetaminophen 650 mg 12/05/24 21:02 Acetaminophen 325 Mg Tablet PO Q4H PRN Pain Rated 1-3 Hydrocodone Bitart/Acetaminophen 1 tab 12/05/24 21:02 12/06/24 04:40 Hydrocodone/Acetaminophen (*Crx) 5-325 Mg Tablet PO 1 tab Q6H PRN Administration Pain Rated 4-6 Famotidine 20 mg 12/04/24 21:00 12/05/24 20:51 Famotidine 20 Mg/2 Ml Vial IV PUSH 20 mg Q12HR NAZIA Administration Heparin Sodium (Porcine) 5,000 units 12/04/24 22:00 12/06/24 05:34 Heparin Sodium 5,000 Units/Ml Vial SUB-Q 5,000 units Q8HR NAZIA Administration Lactated Ringer's 1,000 mls @ 100 mls/hr 12/04/24 09:25 12/06/24 03:56 Lr - Lactated Ringers Iv IV CONT 100 mls/hr .Q10H NAZIA Administration Morphine Sulfate 4 mg 12/04/24 09:22 12/05/24 09:52 Morphine Sulfate (*Crx) 4 Mg/Ml Inj IV PUSH 4 mg Q2H PRN Administration Pain Rated 7-10 Ondansetron HCl 4 mg 12/04/24 09:22 12/04/24 09:47 Ondansetron Inj 4 Mg/2 Ml Vial IV PUSH 4 mg Q4H PRN Administration Nausea Radiology Results: ITS Impressions Chest X-Ray 12/04/24 06:36 Impression: Normal chest. Chest/Abdomen/Pelvis CTA 12/04/24 07:52 IMPRESSION: 1. Acute pancreatitis with moderate surrounding phlegmonous change. No evidence for pancreatic necrosis, abscess or pseudocyst. MRCP 12/04/24 15:09 IMPRESSION: 1. Acute interstitial pancreatitis with prominent peripancreatic edema and a few acute peripancreatic fluid collections. No organized abscess or acute necrotic collections. 2. Mild dilation the common bile duct to 7 mm and mild central intrahepatic biliary ductal dilation, both which are within normal limits post cholecystectomy. No evident choledocholithiasis or other obstructing lesions. Labs Labs: Laboratory Results - last 24 hr 12/06/24 05:22 WBC 11.6 H RBC 4.39 L Hgb 14.0 Hct 38.8 L MCV 88.4 MCH 31.9 MCHC 36.1 H RDW 13.4 Plt Count 232 MPV 12.2 H Immature Gran % (Auto) 0.3 Neut % (Auto) 71.6 Lymph % (Auto) 13.5 L [place] % (Auto) 12.8 H Eos % (Auto) 1.4 Baso % (Auto) 0.4 Lymph # (Auto) 1.56 [place] # (Auto) 1.5 H Eos # (Auto) 0.2 Baso # (Auto) 0.1 Abs Immat Gran (auto) 0.04 H Absolute Neuts (auto) 8.3 H Absolute Nucleated RBC 0.000 Nucleated RBC % 0.0 Sodium 135 L Potassium 3.2 L Chloride 100 Carbon Dioxide 24 Anion Gap 11 BUN 5 L Creatinine 0.71 Estim Creat Clear Calc 165 Estimated GFR > 60 Glucose 79 Calcium 8.7 Magnesium 1.8
[2024-12-06] MEDS: FAMOTIDINE 20 MG/2 ML VIAL IV PUSH (08:21)
--- NOTE | 2024-12-06 09:36 | PC.NURSE ---
On 12/06/24, the student, Khloe Pena RN LP provided care and completed [employer] documentation on this patient. I have reviewed the student's documentation and agree with the findings.
[2024-12-06] MEDS: POTASSIUM CHLORIDE 20 MEQ ER TABLET PO (11:41)
--- NOTE | 2024-12-06 13:55 | PM.DS ---
DS: Admitting Diagnosis Discharge Date 12/06/2024 Admitting Diagnosis Acute pancreatitis DS: Discharge Diagnosis Discharge Diagnosis (1) Acute pancreatitis: Code(s): K85.90 - Acute pancreatitis without necrosis or infection, unspecified Status: Acute DS: Summary Hospital Course Hospital Course: 19-year-old male with history of recurrent pancreatitis, 03/2023, 03/2024, 11/2023, status post lap cholecystectomy due to cholecystitis. He presents again on 12/04/2024 with severe epigastric pain with nausea and vomiting. His lipase elevated at 21,000 one thousand. Normal liver enzymes including total bilirubin. Leukocytosis. Treated for acute pancreatitis with IV fluids, bowel rest, pain control. On 12/06/2024 he is tolerating regular diet and is discharged to home in stable condition. Slightly elevated white count but improved. Recheck in 2 days. MRCP on 12/04/2024: 1. Acute interstitial pancreatitis with prominent peripancreatic edema and a few acute peripancreatic fluid collections. No organized abscess or acute necrotic collections. 2. Mild dilation the common bile duct to 7 mm and mild central intrahepatic biliary ductal dilation, both which are within normal limits post cholecystectomy. No evident choledocholithiasis or other obstructing lesions. He was seen by gastroenterology service. They are referring him to [facility] for endoscopic sonogram. All of his questions were answered to satisfaction. He was full code during the admission. Time Spent with Patient Time attestation: Total time spent providing and/or coordinating discharge services: Exam Const: General: comfortable and no acute distress HENMT: Mouth: Yes moist mucous membranes Eyes: Pupils: Equal, round and reactive pupils present Neck: Neck: supple Resp: Effort & Inspection: normal respiratory effort Auscultation: clear to auscultation bilaterally Cardio: Rate: regular rate Rhythm: regular rhythm GI: Inspection: non-distended GI Palp: No Guarding due to palpation present (GI) Neuro: Motor exam (neuro): 5/5 motor strength present throughout Extrem: General: no edema DS: Data Data Completed and Pending Labs on day of discharge: Labs from last 24 hours 12/06/24 05:22 WBC 11.6 H RBC 4.39 L Hgb 14.0 Hct 38.8 L MCV 88.4 MCH 31.9 MCHC 36.1 H RDW 13.4 Plt Count 232 MPV 12.2 H Immature Gran % (Auto) 0.3 Neut % (Auto) 71.6 Lymph % (Auto) 13.5 L [place] % (Auto) 12.8 H Eos % (Auto) 1.4 Baso % (Auto) 0.4 Lymph # (Auto) 1.56 [place] # (Auto) 1.5 H Eos # (Auto) 0.2 Baso # (Auto) 0.1 Abs Immat Gran (auto) 0.04 H Absolute Neuts (auto) 8.3 H Absolute Nucleated RBC 0.000 Nucleated RBC % 0.0 Sodium 135 L Potassium 3.2 L Chloride 100 Carbon Dioxide 24 Anion Gap 11 BUN 5 L Creatinine 0.71 Estim Creat Clear Calc 165 Estimated GFR > 60 Glucose 79 Calcium 8.7 Magnesium 1.8 Discharge Plan Discharge Attending physician on discharge: Toña Vera Consulting providers: [facility] Toure Discharging Clinician: Toña Vera Patient Disposition: Home Activity: august shower Diet: as tolerated Patient Instructions: Antibiotic Form Patient Language: German Stand Alone Forms: General Discharge Information Follow-up/Referrals: PHYSICIAN,FISHING FLOATS ASSEMBLER [Primary Care Provider] - Discharge Medications: Continued cetirizine [Zyrtec] 10 mg tablet 10 mg PO DAILY PRN (Reason: allergy symptoms) Qty: 30 0RF Other Ambulatory Orders: Complete Blood Count with Diff (Routine) Timeframe: 2 Days Location: Determined by Patient Ordered By: Toña Vera Date of admission: 12/04/24 12:47 Primary Care Provider: PHYSICIAN,FISHING FLOATS ASSEMBLER Admitting Provider: Toña Vera Attending physician on admission: Toña Vera Condition: Stable Hospitalist MIPS Heart Failure (Exclusion) Patient has history of Heart Transplant or Left Ventricular Assistive Device?: No IF YES, STOP HERE Heart Failure (Qualifier) Patient has current or prior documentation of LVEF less than or equal to 40%, or mod/servere depressed LVSF?: No IF NO, STOP HERE
[2024-12-06 14:00] VITALS: BP 127/69; PULSE 124; RESP 18; TEMP 37.2; O2SAT 97
[2024-12-06 15:00] VITALS: PULSE 106; TEMP 38.3
--- NOTE | 2024-12-06 18:32 | PC.NURSE ---
This RN notified the DR about the patient having a HR of 118 then 10 minutes later 106 and a temperature of 100.9.
[2024-12-06 20:18] VITALS: BP 110/57; PULSE 85; RESP 18; TEMP 36.5; O2SAT 97
[2024-12-06] MEDS: FAMOTIDINE 20 MG TABLET PO (20:48)
[2024-12-07] VITALS (7 sets, daily range): BP systolic 102–117; BP diastolic 61–82; PULSE 65–93; RESP 18–20; TEMP 36.3–37.7; O2SAT 97–98
[2024-12-07 05:52] LABS: Hematocrit 37.9 % (42.0-52.0); Hemoglobin 13.5 g/dL (14.0-18.0); Immature Granulocyte Percent A 0.5 % (0-0.5); Lymphocytes Absolute Auto 1.46 K/mm3 (0.9-3.2); Mean Corpuscular HGB Conc 35.6 g/dl (32-36); Mean Corpuscular Hemoglobin 31.4 pg (26-34); Mean Corpuscular Volume 88.1 fl (80-100); Nucleated Red Blood Cells Absolute Auto 0.000 K/mm3 (0.0-0.012); Nucleated Red Blood Cells Perc 0.0 % (0.0-0.2); Platelet Count Result 230 k/mm3 (150-375); Red Blood Count 4.30 M/mm3 (4.6-6.20); White Blood Count 13.2 K/mm3 (4.5-10.0)
[2024-12-07 06:20] LABS: Anion Gap 7 mmol/L (4-12); Blood Urea Nitrogen 7 mg/dL (9-20); Calcium 8.9 mg/dL (8.4-10.2); Carbon Dioxide 26 mmol/L (22-30); Chloride 100 mmol/L (98-107); Estimated CRCL calculation 153 ml/min; Estimated Glomerular Filt Rate > 60; Glucose 93 mg/dL (65-110); Magnesium 2.0 mg/dL (1.6-2.3); Potassium 3.3 mmol/L (3.4-5.0); Sodium 133 mmol/L (137-145)
[2024-12-07 06:30] LABS: Procalcitonin 0.0 ng/mL
[2024-12-07] MEDS: FAMOTIDINE 20 MG TABLET PO ×2 (08:32→20:56)
[2024-12-07] MEDS: POTASSIUM CHLORIDE 20 MEQ ER TABLET PO (08:32)
[2024-12-07 13:00] LABS: Add Urine Microscopic? YES; Appearance Urine Cloudy (Clear); Glucose Urine UA Negative (Negative); Leukocyte Esterase Ur Trace LEU/UL (Negative); Need Manual Microscopic Reviewed; Nitrate Urine Negative (Negative); Non Pathogenic Casts 0-2; Specific Grav Ur 1.032 (1.001-1.035)
--- NOTE | 2024-12-07 13:47 | PM.IMPN ---
Progress Note: A&P Assessment and Plan (1) Nausea and vomiting in adult: Code(s): R11.2 - Nausea with vomiting, unspecified Status: Acute (2) Leukocytosis: Code(s): D72.829 - Elevated white blood cell count, unspecified Status: Acute Plan 19-year-old male with history of recurrent pancreatitis, 03/2023, 03/2024, 11/2023, status post lap cholecystectomy due to cholecystitis. He presents again on 12/04/2024 with severe epigastric pain with nausea and vomiting. His lipase elevated at 21,000. Normal liver enzymes including total bilirubin. Leukocytosis. Treated for pancreatitis with bowel rest, pain control, fluid resuscitation. On 12/06/2024 the patient is tolerating a regular diet. He has no abdominal pain or distension or nausea or vomiting. MRCP on 12/04/2024: 1. Acute interstitial pancreatitis with prominent peripancreatic edema and a few acute peripancreatic fluid collections. No organized abscess or acute necrotic collections. 2. Mild dilation the common bile duct to 7 mm and mild central intrahepatic biliary ductal dilation, both which are within normal limits post cholecystectomy. No evident choledocholithiasis or other obstructing lesions. He did develop a fever. 12/07/2024: T-max 99.8? at noon. The patient does not have any symptoms on comprehensive review. He does not think he aspirated when he vomited just prior to admission. However, his white count has increased to 13.2. No bandemia and procalcitonin is 0. Urinalysis with cloudy appearance, trace leukocyte esterase but no nitrites or bacteria. Chest x-ray on 12/07/2024 demonstrating opacities at the left lower lung. Will treat for aspiration or community-acquired bacterial pneumonia with Zosyn. Order blood cultures as well. If he has worsening signs of pancreatitis we could repeat CT abdomen but that appears to be resolved at this moment. Patient wishes to be full code. Heparin 8000 units subQ t.i.d. saline lock IV. Regular diet. Patient is independent at baseline. Subjective Date/time seen: 12/07/24 13:47 Interval history: Patient did not feel feverish or chills overnight he reports he slept well. He reports he has a soreness on his left lower back that is worse when he is moving around. Denies any burning on urination, abdominal pain, nausea or vomiting. He had a formed bowel movement today. Denies any cough, shortness of breath, chest pain, fainting, change in vision. Review of Systems Review of Systems: All systems reviewed & are unremarkable except as noted in HPI and below (Subjective) Exam Const: General: comfortable and no acute distress HENMT: Mouth: Yes moist mucous membranes Eyes: Pupils: Equal, round and reactive pupils present Neck: Neck: supple Resp: Effort & Inspection: normal respiratory effort Auscultation: clear to auscultation bilaterally Cardio: Rate: regular rate Rhythm: regular rhythm GI: Inspection: non-distended GI Palp: No Guarding due to palpation present (GI) : Other: No CVA tenderness Neuro: Motor exam (neuro): 5/5 motor strength present throughout Extrem: General: no edema Objective Data Vital Signs Vital Signs: Vital Signs - 24 hr 12/06/24 14:00 12/06/24 15:00 12/06/24 20:00 Temperature 98.9 F 100.9 F H Pulse Rate 124 H 106 H Respiratory Rate 18 Blood Pressure 127/69 Pulse Oximetry 97 Oxygen Delivery Room Air 12/06/24 20:18 12/07/24 00:00 12/07/24 04:00 Temperature 97.7 F 97.4 F L 97.5 F L Pulse Rate 85 93 82 Respiratory Rate 18 20 18 Blood Pressure 110/57 L 107/62 112/82 Pulse Oximetry 97 98 97 Oxygen Delivery 12/07/24 08:00 12/07/24 08:40 12/07/24 12:00 Temperature 99.0 F 99.8 F H Pulse Rate 93 87 Respiratory Rate 18 18 Blood Pressure 117/66 111/69 Pulse Oximetry 98 98 Oxygen Delivery Room Air Intake/Output Intake/Output: Intake & Output 12/04/24 12/05/24 12/06/24 12/07/24 23:59 23:59 23:59 23:59 Intake Total 4000 4691.7 2905 540 Balance 4000 4691.7 2905 540 Meds/Results Medications: Active Medications Generic Name Dose Route Start Last Admin Trade Name Freq PRN Reason Stop Dose Admin Acetaminophen 650 mg 12/05/24 21:02 Acetaminophen 325 Mg Tablet PO Q4H PRN Pain Rated 1-3 Hydrocodone Bitart/Acetaminophen 1 tab 12/05/24 21:02 08/08/25 04:40 Hydrocodone/Acetaminophen (*Crx) 5-325 Mg Tablet PO 1 tab Q6H PRN Administration Pain Rated 4-6 Famotidine 20 mg 12/06/24 21:00 12/07/24 08:32 Famotidine 20 Mg Tablet PO 20 mg Q12HR NAZIA Administration Heparin Sodium (Porcine) 5,000 units 12/04/24 22:00 12/07/24 04:51 Heparin Sodium 5,000 Units/Ml Vial SUB-Q 5,000 units Q8HR NAZIA Administration Piperacillin Sod/Tazobactam 50 mls @ 100 mls/hr 12/07/24 13:25 Sod 3.375 gm/ Sodium Chloride IVPB Q6HR NAZIA Morphine Sulfate 4 mg 12/04/24 09:22 12/05/24 09:52 Morphine Sulfate (*Crx) 4 Mg/Ml Inj IV PUSH 4 mg Q2H PRN Administration Pain Rated 7-10 Ondansetron HCl 4 mg 12/04/24 09:22 12/04/24 09:47 Ondansetron Inj 4 Mg/2 Ml Vial IV PUSH 4 mg Q4H PRN Administration Nausea Radiology Results: ITS Impressions Chest/Abdomen/Pelvis CTA 12/04/24 07:52 IMPRESSION: 1. Acute pancreatitis with moderate surrounding phlegmonous change. No evidence for pancreatic necrosis, abscess or pseudocyst. MRCP 12/04/24 15:09 IMPRESSION: 1. Acute interstitial pancreatitis with prominent peripancreatic edema and a few acute peripancreatic fluid collections. No organized abscess or acute necrotic collections. 2. Mild dilation the common bile duct to 7 mm and mild central intrahepatic biliary ductal dilation, both which are within normal limits post cholecystectomy. No evident choledocholithiasis or other obstructing lesions. Chest X-Ray 12/07/24 11:10 IMPRESSION: 1. New opacities at the left lower lung zone which could represent atelectasis or pneumonia. Labs Labs: Laboratory Results - last 24 hr 12/07/24 12/07/24 05:34 12:30 WBC 13.2 H RBC 4.30 L Hgb 13.5 L Hct 37.9 L MCV 88.1 MCH 31.4 MCHC 35.6 RDW 13.5 Plt Count 230 MPV 11.3 H Immature Gran % (Auto) 0.5 Neut % (Auto) 73.5 H Lymph % (Auto) 11.0 L [place] % (Auto) 11.9 H Eos % (Auto) 2.6 Baso % (Auto) 0.5 Lymph # (Auto) 1.46 [place] # (Auto) 1.6 H Eos # (Auto) 0.4 H Baso # (Auto) 0.1 Abs Immat Gran (auto) 0.06 H Absolute Neuts (auto) 9.7 H Absolute Nucleated RBC 0.000 Nucleated RBC % 0.0 Sodium 133 L Potassium 3.3 L Chloride 100 Carbon Dioxide 26 Anion Gap 7 BUN 7 L Creatinine 0.77 Estim Creat Clear Calc 153 Estimated GFR > 60 Glucose 93 Calcium 8.9 Magnesium 2.0 Procalcitonin 0.0 Urine Color Dark yellow Urine Appearance Cloudy H Urine pH 6.0 Ur Specific [place] 1.032 Urine Protein 1+ H Urine Glucose (UA) Negative Urine Ketones 2+ H Ur Blood (Man) Negative Urine Nitrate Negative Urine Bilirubin 2+ H Urine Urobilinogen 1.0 Ur Leukocyte Esterase Trace H Add Ur Microanalysis Reviewed Urine RBC 0-2 Urine WBC 0-5 Ur Squamous Epith Cells None seen Urine Bacteria None seen Urine Casts 0-2
[2024-12-07] MEDS: PIPERACILLIN/TAZOBACTAM SOD 3.375 GM in SODIUM CHLORIDE 0.9% IV 50 ML 100 ML IVPB ×2 (15:10→20:56)
[2024-12-08] VITALS: BP 108/58; PULSE 72; RESP 20; TEMP 36.9; O2SAT 98
[2024-12-08] MEDS: PIPERACILLIN/TAZOBACTAM SOD 3.375 GM in SODIUM CHLORIDE 0.9% IV 50 ML 100 ML IVPB ×4 (02:06→21:02)
[2024-12-08 04:00] VITALS: BP 112/65; PULSE 62; RESP 16; TEMP 36.9; O2SAT 98
[2024-12-08 06:28] LABS: Hematocrit 36.3 % (42.0-52.0); Hemoglobin 12.6 g/dL (14.0-18.0); Immature Granulocyte Percent A 0.3 % (0-0.5); Lymphocytes Absolute Auto 1.66 K/mm3 (0.9-3.2); Mean Corpuscular HGB Conc 34.7 g/dl (32-36); Mean Corpuscular Hemoglobin 31.3 pg (26-34); Mean Corpuscular Volume 90.3 fl (80-100); Nucleated Red Blood Cells Absolute Auto 0.000 K/mm3 (0.0-0.012); Nucleated Red Blood Cells Perc 0.0 % (0.0-0.2); Platelet Count Result 255 k/mm3 (150-375); Red Blood Count 4.02 M/mm3 (4.6-6.20); White Blood Count 10.4 K/mm3 (4.5-10.0)
[2024-12-08 06:44] LABS: Anion Gap 10 mmol/L (4-12); Blood Urea Nitrogen 10 mg/dL (9-20); Calcium 8.8 mg/dL (8.4-10.2); Carbon Dioxide 25 mmol/L (22-30); Chloride 100 mmol/L (98-107); Estimated CRCL calculation 159 ml/min; Estimated Glomerular Filt Rate > 60; Glucose 86 mg/dL (65-110); Magnesium 2.2 mg/dL (1.6-2.3); Potassium 3.5 mmol/L (3.4-5.0); Sodium 135 mmol/L (137-145)
[2024-12-08 07:03] LABS: Procalcitonin 0.0 ng/mL
[2024-12-08] MEDS: FAMOTIDINE 20 MG TABLET PO ×2 (07:53→21:03)
[2024-12-08 08:00] VITALS: BP 109/68; PULSE 65; RESP 18; TEMP 36.4; O2SAT 98
--- NOTE | 2024-12-08 08:19 | WPDGIPROGNO ---
Progress Note: A&P Assessment and Plan (1) Acute pancreatitis: Code(s): K85.90 - Acute pancreatitis without necrosis or infection, unspecified Status: Acute Assessment and Plan: Patient was being discharged from hospital and developed a fever the night before. There is no evidence of phlebitis, signs or symptoms of upper respiratory infection and a nonspecific back pain. A chest x-ray done yesterday shows a very subtle opacity in the left lower lobe. It was described as atelectasis versus pneumonia. Antibiotic started. Most likely given the mild picture, it looks more like atelectasis. Plan - Suggest pulmonary consult to optimize management and to assess the need for prolonged broad spectrum antibiotics Subjective Date/time seen: 12/08/24 08:19 Objective Data Vital Signs Vital Signs: Vital Signs - 24 hr 12/07/24 08:40 12/07/24 12:00 12/07/24 16:00 Temperature 99.8 F H 99.1 F Pulse Rate 87 65 Respiratory Rate 18 18 Blood Pressure 111/69 105/66 Pulse Oximetry 98 97 Oxygen Delivery Room Air Fraction of Inspired Oxygen 12/07/24 20:00 12/07/24 20:00 12/07/24 21:10 Temperature 97.5 F L Pulse Rate 70 78 Respiratory Rate 20 20 Blood Pressure 102/61 Pulse Oximetry 98 97 Oxygen Delivery Room Air Room Air Fraction of Inspired Oxygen 21 12/08/24 00:00 12/08/24 04:00 Temperature 98.4 F 98.5 F Pulse Rate 72 62 Respiratory Rate 20 16 Blood Pressure 108/58 L 112/65 Pulse Oximetry 98 98 Oxygen Delivery Fraction of Inspired Oxygen Intake/Output Intake/Output: Intake & Output 12/05/24 12/06/24 12/07/24 12/08/24 23:59 23:59 23:59 23:59 Intake Total 4691.7 3811.7 2220 300 Balance 4691.7 3811.7 2220 300 Meds/Results Medications: Active Medications Generic Name Dose Route Start Last Admin Trade Name Freq PRN Reason Stop Dose Admin Acetaminophen 650 mg 12/05/24 21:02 Acetaminophen 325 Mg Tablet PO Q4H PRN Pain Rated 1-3 Hydrocodone Bitart/Acetaminophen 1 tab 12/05/24 21:02 12/06/24 04:40 Hydrocodone/Acetaminophen (*Crx) 5-325 Mg Tablet PO 1 tab Q6H PRN Administration Pain Rated 4-6 Famotidine 20 mg 12/06/24 21:00 12/08/24 07:53 Famotidine 20 Mg Tablet PO 20 mg Q12HR NAZIA Administration Heparin Sodium (Porcine) 5,000 units 12/04/24 22:00 12/08/24 05:05 Heparin Sodium 5,000 Units/Ml Vial SUB-Q 5,000 units Q8HR NAZIA Administration Piperacillin Sod/Tazobactam 50 mls @ 100 mls/hr 12/07/24 21:00 12/08/24 07:52 Sod 3.375 gm/ Sodium Chloride IVPB 100 mls/hr Q6H NAZIA Administration Morphine Sulfate 4 mg 12/04/24 09:22 12/05/24 09:52 Morphine Sulfate (*Crx) 4 Mg/Ml Inj IV PUSH 4 mg Q2H PRN Administration Pain Rated 7-10 Ondansetron HCl 4 mg 12/04/24 09:22 12/04/24 09:47 Ondansetron Inj 4 Mg/2 Ml Vial IV PUSH 4 mg Q4H PRN Administration Nausea Radiology Results: ITS Impressions Chest/Abdomen/Pelvis CTA 12/04/24 07:52 IMPRESSION: 1. Acute pancreatitis with moderate surrounding phlegmonous change. No evidence for pancreatic necrosis, abscess or pseudocyst. MRCP 12/04/24 15:09 IMPRESSION: 1. Acute interstitial pancreatitis with prominent peripancreatic edema and a few acute peripancreatic fluid collections. No organized abscess or acute necrotic collections. 2. Mild dilation the common bile duct to 7 mm and mild central intrahepatic biliary ductal dilation, both which are within normal limits post cholecystectomy. No evident choledocholithiasis or other obstructing lesions. Chest X-Ray 12/07/24 11:10 IMPRESSION: 1. New opacities at the left lower lung zone which could represent atelectasis or pneumonia. Labs Labs: Laboratory Results - last 24 hr 12/07/24 12/08/24 12:30 05:26 WBC 10.4 H RBC 4.02 L Hgb 12.6 L Hct 36.3 L MCV 90.3 MCH 31.3 MCHC 34.7 RDW 13.5 Plt Count 255 MPV 11.8 H Immature Gran % (Auto) 0.3 Neut % (Auto) 64.2 Lymph % (Auto) 15.9 L [place] % (Auto) 11.5 H Eos % (Auto) 7.6 H Baso % (Auto) 0.5 Lymph # (Auto) 1.66 [place] # (Auto) 1.2 H Eos # (Auto) 0.8 H Baso # (Auto) 0.1 Abs Immat Gran (auto) 0.03 Absolute Neuts (auto) 6.7 Absolute Nucleated RBC 0.000 Nucleated RBC % 0.0 Sodium 135 L Potassium 3.5 Chloride 100 Carbon Dioxide 25 Anion Gap 10 BUN 10 Creatinine 0.74 Estim Creat Clear Calc 159 Estimated GFR > 60 Glucose 86 Calcium 8.8 Magnesium 2.2 Procalcitonin 0.0 Urine Color Dark yellow Urine Appearance Cloudy H Urine pH 6.0 Ur Specific [place] 1.032 Urine Protein 1+ H Urine Glucose (UA) Negative Urine Ketones 2+ H Ur Blood (Man) Negative Urine Nitrate Negative Urine Bilirubin 2+ H Urine Urobilinogen 1.0 Ur Leukocyte Esterase Trace H Add Ur Microanalysis Reviewed Urine RBC 0-2 Urine WBC 0-5 Ur Squamous Epith Cells None seen Urine Bacteria None seen Urine Casts 0-2
[2024-12-08 14:00] VITALS: BP 103/72; PULSE 76; RESP 18; TEMP 37.2; O2SAT 99
--- NOTE | 2024-12-08 15:34 | PM.IMPN ---
Progress Note: A&P Assessment and Plan (1) Nausea and vomiting in adult: Code(s): R11.2 - Nausea with vomiting, unspecified Status: Acute (2) Leukocytosis: Code(s): D72.829 - Elevated white blood cell count, unspecified Status: Acute Plan 19-year-old male with history of recurrent pancreatitis, 03/2023, 03/2024, 11/2023, status post lap cholecystectomy due to cholecystitis. He presents again on 12/04/2024 with severe epigastric pain with nausea and vomiting. His lipase elevated at 21,000. Normal liver enzymes including total bilirubin. Leukocytosis. Treated for pancreatitis with bowel rest, pain control, fluid resuscitation. On 12/06/2024 the patient is tolerating a regular diet. He has no abdominal pain or distension or nausea or vomiting. MRCP on 12/04/2024: 1. Acute interstitial pancreatitis with prominent peripancreatic edema and a few acute peripancreatic fluid collections. No organized abscess or acute necrotic collections. 2. Mild dilation the common bile duct to 7 mm and mild central intrahepatic biliary ductal dilation, both which are within normal limits post cholecystectomy. No evident choledocholithiasis or other obstructing lesions. He did develop a fever. 12/07/2024: T-max 99.8? at noon. The patient does not have any symptoms on comprehensive review. He does not think he aspirated when he vomited just prior to admission. However, his white count has increased to 13.2. No bandemia and procalcitonin is 0. Urinalysis with cloudy appearance, trace leukocyte esterase but no nitrites or bacteria. Chest x-ray on 12/07/2024 demonstrating opacities at the left lower lung. Will treat for aspiration or community-acquired bacterial pneumonia with Zosyn. Order blood cultures as well. If he has worsening signs of pancreatitis we could repeat CT abdomen but that appears to be resolved at this moment. 12/08/2024: Afebrile. Patient remains on Unasyn, cough upon deep inspiration, rhonchi left lower lobe. Gastroenterology has consulted Infectious Disease. Leukocytosis is improving. Blood cultures no growth to date. Patient wishes to be full code. Heparin 5000 units subQ t.i.d. saline lock IV. Regular diet. Patient is independent at baseline. Subjective Date/time seen: 12/08/24 15:34 Interval history: He has been tolerating diet. No abdominal pain. Cough upon deep inspiration. Denies chills or fevers Review of Systems Review of Systems: All systems reviewed & are unremarkable except as noted in HPI and below (Subjective) Exam Const: General: comfortable and no acute distress HENMT: Mouth: Yes moist mucous membranes Eyes: Pupils: Equal, round and reactive pupils present Neck: Neck: supple Resp: Effort & Inspection: normal respiratory effort Other: Rhonchi left lower lobe Cardio: Rate: regular rate Rhythm: regular rhythm GI: Inspection: non-distended GI Palp: No Guarding due to palpation present (GI) : Other: No CVA tenderness Neuro: Motor exam (neuro): 5/5 motor strength present throughout Extrem: General: no edema Objective Data Vital Signs Vital Signs: Vital Signs - 24 hr 12/07/24 16:00 12/07/24 20:00 12/07/24 20:00 Temperature 99.1 F 97.5 F L Pulse Rate 65 70 Respiratory Rate 18 20 Blood Pressure 105/66 102/61 Pulse Oximetry 97 98 Oxygen Delivery Room Air Fraction of Inspired Oxygen 12/07/24 21:10 12/08/24 00:00 12/08/24 04:00 Temperature 98.4 F 98.5 F Pulse Rate 78 72 62 Respiratory Rate 20 20 16 Blood Pressure 108/58 L 112/65 Pulse Oximetry 97 98 98 Oxygen Delivery Room Air Fraction of Inspired Oxygen 21 12/08/24 07:50 12/08/24 08:00 12/08/24 14:00 Temperature 97.5 F L 98.9 F Pulse Rate 65 76 Respiratory Rate 18 18 Blood Pressure 109/68 103/72 Pulse Oximetry 98 99 Oxygen Delivery Room Air Fraction of Inspired Oxygen Intake/Output Intake/Output: Intake & Output 12/05/24 12/06/24 12/07/24 12/08/24 23:59 23:59 23:59 23:59 Intake Total 4691.7 3811.7 2220 830 Balance 4691.7 3811.7 2220 830 Meds/Results Medications: Active Medications Generic Name Dose Route Start Last Admin Trade Name Freq PRN Reason Stop Dose Admin Acetaminophen 650 mg 12/05/24 21:02 Acetaminophen 325 Mg Tablet PO Q4H PRN Pain Rated 1-3 Hydrocodone Bitart/Acetaminophen 1 tab 12/05/24 21:02 12/06/24 04:40 Hydrocodone/Acetaminophen (*Crx) 5-325 Mg Tablet PO 1 tab Q6H PRN Administration Pain Rated 4-6 Famotidine 20 mg 12/06/24 21:00 12/08/24 07:53 Famotidine 20 Mg Tablet PO 20 mg Q12HR NAZIA Administration Heparin Sodium (Porcine) 5,000 units 12/04/24 22:00 12/08/24 13:46 Heparin Sodium 5,000 Units/Ml Vial SUB-Q 5,000 units Q8HR NAZIA Administration Piperacillin Sod/Tazobactam 50 mls @ 100 mls/hr 12/07/24 21:00 12/08/24 15:01 Sod 3.375 gm/ Sodium Chloride IVPB 100 mls/hr Q6H NAZIA Administration Morphine Sulfate 4 mg 12/04/24 09:22 12/05/24 09:52 Morphine Sulfate (*Crx) 4 Mg/Ml Inj IV PUSH 4 mg Q2H PRN Administration Pain Rated 7-10 Ondansetron HCl 4 mg 12/04/24 09:22 12/04/24 09:47 Ondansetron Inj 4 Mg/2 Ml Vial IV PUSH 4 mg Q4H PRN Administration Nausea Radiology Results: ITS Impressions Chest/Abdomen/Pelvis CTA 12/04/24 07:52 IMPRESSION: 1. Acute pancreatitis with moderate surrounding phlegmonous change. No evidence for pancreatic necrosis, abscess or pseudocyst. MRCP 12/04/24 15:09 IMPRESSION: 1. Acute interstitial pancreatitis with prominent peripancreatic edema and a few acute peripancreatic fluid collections. No organized abscess or acute necrotic collections. 2. Mild dilation the common bile duct to 7 mm and mild central intrahepatic biliary ductal dilation, both which are within normal limits post cholecystectomy. No evident choledocholithiasis or other obstructing lesions. Chest X-Ray 12/07/24 11:10 IMPRESSION: 1. New opacities at the left lower lung zone which could represent atelectasis or pneumonia. Labs Labs: Laboratory Results - last 24 hr 12/08/24 05:26 WBC 10.4 H RBC 4.02 L Hgb 12.6 L Hct 36.3 L MCV 90.3 MCH 31.3 MCHC 34.7 RDW 13.5 Plt Count 255 MPV 11.8 H Immature Gran % (Auto) 0.3 Neut % (Auto) 64.2 Lymph % (Auto) 15.9 L [place] % (Auto) 11.5 H Eos % (Auto) 7.6 H Baso % (Auto) 0.5 Lymph # (Auto) 1.66 [place] # (Auto) 1.2 H Eos # (Auto) 0.8 H Baso # (Auto) 0.1 Abs Immat Gran (auto) 0.03 Absolute Neuts (auto) 6.7 Absolute Nucleated RBC 0.000 Nucleated RBC % 0.0 Sodium 135 L Potassium 3.5 Chloride 100 Carbon Dioxide 25 Anion Gap 10 BUN 10 Creatinine 0.74 Estim Creat Clear Calc 159 Estimated GFR > 60 Glucose 86 Calcium 8.8 Magnesium 2.2 Procalcitonin 0.0
[2024-12-08 20:08] VITALS: BP 120/69; PULSE 67; RESP 16; TEMP 35.9; O2SAT 99
[2024-12-09] MEDS: PIPERACILLIN/TAZOBACTAM SOD 3.375 GM in SODIUM CHLORIDE 0.9% IV 50 ML 100 ML IVPB ×2 (02:07→08:00)
[2024-12-09 04:35] VITALS: BP 107/57; PULSE 50; RESP 16; TEMP 36.4; O2SAT 99
[2024-12-09 05:57] LABS: Hematocrit 34.0 % (42.0-52.0); Hemoglobin 12.1 g/dL (14.0-18.0); Immature Granulocyte Percent A 0.4 % (0-0.5); Lymphocytes Absolute Auto 2.09 K/mm3 (0.9-3.2); Mean Corpuscular HGB Conc 35.6 g/dl (32-36); Mean Corpuscular Hemoglobin 32.0 pg (26-34); Mean Corpuscular Volume 89.9 fl (80-100); Nucleated Red Blood Cells Absolute Auto 0.000 K/mm3 (0.0-0.012); Nucleated Red Blood Cells Perc 0.0 % (0.0-0.2); Platelet Count Result 265 k/mm3 (150-375); Red Blood Count 3.78 M/mm3 (4.6-6.20); White Blood Count 8.4 K/mm3 (4.5-10.0)
[2024-12-09 06:19] LABS: Anion Gap 9 mmol/L (4-12); Blood Urea Nitrogen 10 mg/dL (9-20); Calcium 9.0 mg/dL (8.4-10.2); Carbon Dioxide 26 mmol/L (22-30); Chloride 103 mmol/L (98-107); Estimated CRCL calculation 155 ml/min; Estimated Glomerular Filt Rate > 60; Glucose 87 mg/dL (65-110); Magnesium 2.2 mg/dL (1.6-2.3); Potassium 3.5 mmol/L (3.4-5.0); Sodium 138 mmol/L (137-145)
[2024-12-09 08:00] VITALS: O2SAT 99
[2024-12-09] MEDS: FAMOTIDINE 20 MG TABLET PO (08:00)
--- NOTE | 2024-12-09 10:37 | P.PNIM_ITS ---
Progress Note: A&P Assessment and Plan (1) Nausea and vomiting in adult: Code(s): R11.2 - Nausea with vomiting, unspecified Status: Acute (2) Leukocytosis: Code(s): D72.829 - Elevated white blood cell count, unspecified Status: Acute Plan 19-year-old male with history of recurrent pancreatitis, 03/2023, 03/2024, 11/2023, status post lap cholecystectomy due to cholecystitis. He presents again on 12/04/2024 with severe epigastric pain with nausea and vomiting. His lipase elevated at 21,000. Normal liver enzymes including total bilirubin. Leukocytosis. Treated for pancreatitis with bowel rest, pain control, fluid resuscitation. On 12/06/2024 the patient is tolerating a regular diet. He has no abdominal pain or distension or nausea or vomiting. MRCP on 12/04/2024: 1. Acute interstitial pancreatitis with prominent peripancreatic edema and a few acute peripancreatic fluid collections. No organized abscess or acute necrotic collections. 2. Mild dilation the common bile duct to 7 mm and mild central intrahepatic biliary ductal dilation, both which are within normal limits post cholecystectomy. No evident choledocholithiasis or other obstructing lesions. He did develop a fever. 12/07/2024: T-max 99.8? at noon. The patient does not have any symptoms on comprehensive review. He does not think he aspirated when he vomited just prior to admission. However, his white count has increased to 13.2. No bandemia and procalcitonin is 0. Urinalysis with cloudy appearance, trace leukocyte esterase but no nitrites or bacteria. Chest x-ray on 12/07/2024 demonstrating opacities at the left lower lung. Will treat for aspiration or community-acquired bacterial pneumonia with Zosyn. Order blood cultures as well. If he has worsening signs of pancreatitis we could repeat CT abdomen but that appears to be resolved at this moment. 12/08/2024: Afebrile. Patient remains on Unasyn, cough upon deep inspiration, rhonchi left lower lobe. Gastroenterology has consulted Infectious Disease. Leukocytosis is improving. Blood cultures no growth to date. Patient wishes to be full code. Heparin 5000 units subQ t.i.d. saline lock IV. Regular diet. Patient is independent at baseline. Subjective Date/time seen: 12/09/24 10:37 Review of Systems Review of Systems: All systems reviewed & are unremarkable except as noted in HPI and below (Subjective) Exam Const: General: comfortable and no acute distress HENMT: Mouth: Yes moist mucous membranes Eyes: Pupils: Equal, round and reactive pupils present Neck: Neck: supple Resp: Effort & Inspection: normal respiratory effort Auscultation: clear to auscultation bilaterally Other: Rhonchi left lower lobe Cardio: Rate: regular rate Rhythm: regular rhythm GI: Inspection: non-distended : Other: No CVA tenderness Neuro: Cranial nerves: Yes Equal, round and reactive pupils present Motor exam (neuro): 5/5 motor strength present throughout Extrem: General: no edema Objective Data Vital Signs Vital Signs: Vital Signs - 24 hr 12/08/24 14:00 12/08/24 20:00 12/08/24 20:08 Temperature 98.9 F 96.7 F L Pulse Rate 76 67 Respiratory Rate 18 16 Blood Pressure 103/72 120/69 Pulse Oximetry 99 99 Oxygen Delivery Room Air 12/09/24 04:35 12/09/24 08:00 Temperature 97.6 F Pulse Rate 50 L Respiratory Rate 16 Blood Pressure 107/57 L Pulse Oximetry 99 99 Oxygen Delivery Room Air Intake/Output Intake/Output: Intake & Output 12/06/24 12/07/24 12/08/24 12/09/24 23:59 23:59 23:59 23:59 Intake Total 3811.7 2220 2820 408 Balance 3811.7 2220 2820 408 Meds/Results Medications: Active Medications Generic Name Dose Route Start Last Admin Trade Name Joniq PRN Reason Stop Dose Admin Acetaminophen 650 mg 12/05/24 21:02 Acetaminophen 325 Mg Tablet PO Q4H PRN Pain Rated 1-3 Hydrocodone Bitart/Acetaminophen 1 tab 12/05/24 21:02 12/06/24 04:40 Hydrocodone/Acetaminophen (*Crx) 5-325 Mg Tablet PO 1 tab Q6H PRN Administration Pain Rated 4-6 Famotidine 20 mg 12/06/24 21:00 12/09/24 08:00 Famotidine 20 Mg Tablet PO 20 mg Q12HR NAZIA Administration Heparin Sodium (Porcine) 5,000 units 12/04/24 22:00 12/09/24 05:15 Heparin Sodium 5,000 Units/Ml Vial SUB-Q 5,000 units Q8HR NAZIA Administration Piperacillin Sod/Tazobactam 50 mls @ 100 mls/hr 12/07/24 21:00 12/09/24 08:00 Sod 3.375 gm/ Sodium Chloride IVPB 100 mls/hr Q6H NAZIA Administration Morphine Sulfate 4 mg 12/04/24 09:22 12/05/24 09:52 Morphine Sulfate (*Crx) 4 Mg/Ml Inj IV PUSH 4 mg Q2H PRN Administration Pain Rated 7-10 Ondansetron HCl 4 mg 12/04/24 09:22 12/04/24 09:47 Ondansetron Inj 4 Mg/2 Ml Vial IV PUSH 4 mg Q4H PRN Administration Nausea Radiology Results: ITS Impressions Chest/Abdomen/Pelvis CTA 12/04/24 07:52 IMPRESSION: 1. Acute pancreatitis with moderate surrounding phlegmonous change. No evidence for pancreatic necrosis, abscess or pseudocyst. MRCP 12/04/24 15:09 IMPRESSION: 1. Acute interstitial pancreatitis with prominent peripancreatic edema and a few acute peripancreatic fluid collections. No organized abscess or acute necrotic collections. 2. Mild dilation the common bile duct to 7 mm and mild central intrahepatic biliary ductal dilation, both which are within normal limits post cholecystectomy. No evident choledocholithiasis or other obstructing lesions. Chest X-Ray 12/07/24 11:10 IMPRESSION: 1. New opacities at the left lower lung zone which could represent atelectasis or pneumonia. Labs Labs: Laboratory Results - last 24 hr 12/09/24 05:24 WBC 8.4 RBC 3.78 L Hgb 12.1 L Hct 34.0 L MCV 89.9 MCH 32.0 MCHC 35.6 RDW 13.3 Plt Count 265 MPV 11.4 H Immature Gran % (Auto) 0.4 Neut % (Auto) 53.0 Lymph % (Auto) 24.8 [place] % (Auto) 10.8 H Eos % (Auto) 10.4 H Baso % (Auto) 0.6 Lymph # (Auto) 2.09 [place] # (Auto) 0.9 H Eos # (Auto) 0.9 H Baso # (Auto) 0.1 Abs Immat Gran (auto) 0.03 Absolute Neuts (auto) 4.5 Absolute Nucleated RBC 0.000 Nucleated RBC % 0.0 Sodium 138 Potassium 3.5 Chloride 103 Carbon Dioxide 26 Anion Gap 9 BUN 10 Creatinine 0.76 Estim Creat Clear Calc 155 Estimated GFR > 60 Glucose 87 Calcium 9.0 Magnesium 2.2
[2024-12-09 14:00] VITALS: BP 116/66; PULSE 75; RESP 18; TEMP 36.1; O2SAT 100
--- NOTE | 2024-12-09 14:07 | WPDIDCN ---
Assessment and Plan Assessment and plan (1) Leukocytosis: Code(s): D72.829 - Elevated white blood cell count, unspecified Status: Acute (2) Acute pancreatitis: Code(s): K85.90 - Acute pancreatitis without necrosis or infection, unspecified Status: Acute Plan [place] acute leukocytosis and fever. Likely related to pancreatitis. No signs of infected pseudocyst. With some atelectasis likely due to splinting from the pancreatitis. Bacterial pneumonia would seem less likely although possible. [place] recurrent pancreatitis. Non ETOH related. Three episodes. Recent MRCP. Some paring peripancreatic fluid but no abscess or pseudocyst. Plan: From ID standpoint, if he is tolerating p.o. and has good pain control, would be okay for discharge on Augmentin. Complete 5 more days of Augmentin. Continue to use incentive spirometer the outpatient setting as tolerated. I do not have any further recommendations about any repeat imaging or workup at this point. No scheduled infectious Disease follow-up but always encouraged to call with questions or concerns. This was done via telemedicine by myself With audio and visual hip a protected platform in [facility] with the patient who was at [facility] in [facility]. Patient consented to telemedicine. HPI Data of Consult Date/Time: 12/09/24 14:07 Requesting Physician: Toña Vera MD Primary Care Provider: [employer]ICIAN Consult Narrative Reason for consult: fever. Pancreatitis Narrative: Lj Gil is a 19 year old male with a history of recurrent pancreatitis. Presenting with fairly acute onset of abdominal pain. Was doing well at home and though with fairly acute onset of abdominal pain. Similar to previous episode. On presentation, was noted to have lipase for 12,000. An MRCP on 12/04. Some slight peripancreatic fluid. Was on Unasyn initially. Fever to 37.7 on 12/07. Chest x-ray with possibility of some atelectasis. Was switched to Zosyn. Clinically, he states he has continued to improve since Monday. Able to tolerate p.o.. No fevers. Had some slight pain with deep inspiration on 12/07 but that has resolved. No cough presently. No phlebitis. ID workup from 12/07 is unremarkable. Tolerating the Zosyn. No diarrhea presently. No previous history of outpatient IV antibiotics. No known history of infected pseudocyst. Review of Systems Review of Systems: Reviewed in detail as per [facility] Past Medical History Medical History (Updated 12/04/24 @ 16:44 by Mikey Garza MD) Nausea and vomiting in adult Pancreatitis Surgical History Surgical History (Updated 12/04/24 @ 16:44 by Mikey Garza MD) History of liver biopsy to test for fatty liver History of laparoscopic cholecystectomy 12/24/2023 - laparoscopic cholecystectomy with intraoperative cholangiogram Social History Social History Smoking status: Never smoker Alcohol intake: never Substance use: never Substance use type: does not use Do You Feel Safe in your Home?: Yes Lack of Transportation: No Lack of Food: Never True Current Housing: I Have Housing Concerned About Future Housing: Decline to Answer Difficulty Paying Gas/Electric Bills: Decline to Answer Difficulty Paying for Meds: Decline to Answer Currently Unemployed: Decline to Answer Education: High School Diploma/GED Difficulty w/ Childcare or Family Care: Decline to Answer Gender identity (if verbalized by the patient): Male Spiritual care concerns: No Meds Home Medications and Allergies Home Medications ?Medication ?Instructions ?Recorded ?Confirmed ?Type cetirizine 10 mg tablet (Zyrtec) 10 mg PO DAILY PRN allergy 03/22/24 12/04/24 Rx symptoms #30 tabs amoxicillin 875 mg-potassium 1 tablet PO Q12H 5 days #10 tabs 12/09/24 Rx clavulanate 125 mg tablet Allergies Allergy/AdvReac Type Severity Reaction Status Date / Time No Known Allergies Allergy Unknown Verified 12/04/24 11:31 Vital Signs Vital Signs - 24 hr 12/08/24 20:00 12/08/24 20:08 12/09/24 04:35 Temperature 35.9 C L 36.4 C Pulse Rate 67 50 L Respiratory Rate 16 16 Blood Pressure 120/69 107/57 L Pulse Oximetry 99 99 Oxygen Delivery Room Air 12/09/24 08:00 Temperature Pulse Rate Respiratory Rate Blood Pressure Pulse Oximetry 99 Oxygen Delivery Room Air Exam Narrative: examined with the aid of telemedicine. Both visual and audio. Nonlabored breathing. Abdomen is soft overall quadrant per present her being able to press and examined. No rash. No active phlebitis. Vitals reviewed. No tachycardia. Results Labs 12/09/24 05:24 12/09/24 05:24 Labs: Short CBC 12/09/24 Range/Units 05:24 WBC 8.4 (4.5-10.0) K/mm3 Hgb 12.1 L (14.0-18.0) g/dL Hct 34.0 L (42.0-52.0) % Plt Count 265 (150-375) k/mm3 [facility] 12/09/24 05:24 Sodium 138 Potassium 3.5 Chloride 103 Carbon Dioxide 26 BUN 10 Creatinine 0.76 Glucose 87 Calcium 9.0
--- NOTE | 2024-12-09 15:16 | PM.DS ---
DS: Admitting Diagnosis Discharge Date 12/09/2024 Admitting Diagnosis Acute pancreatitis DS: Discharge Diagnosis Discharge Diagnosis (1) Nausea and vomiting in adult: Code(s): R11.2 - Nausea with vomiting, unspecified Status: Acute (2) Leukocytosis: Code(s): D72.829 - Elevated white blood cell count, unspecified Status: Acute DS: Summary Hospital Course Hospital Course: 19-year-old male with history of recurrent pancreatitis, 03/2023, 03/2024, 11/2023, status post lap cholecystectomy due to cholecystitis. He presents again on 12/04/2024 with severe epigastric pain with nausea and vomiting. His lipase elevated at 21,000 one thousand. Normal liver enzymes including total bilirubin. Leukocytosis. Treated for acute pancreatitis with IV fluids, bowel rest, pain control. On 12/06/2024 he is tolerating regular diet and is discharged to home in stable condition. Slightly elevated white count but improved. Recheck in 2 days. MRCP on 12/04/2024: 1. Acute interstitial pancreatitis with prominent peripancreatic edema and a few acute peripancreatic fluid collections. No organized abscess or acute necrotic collections. 2. Mild dilation the common bile duct to 7 mm and mild central intrahepatic biliary ductal dilation, both which are within normal limits post cholecystectomy. No evident choledocholithiasis or other obstructing lesions. He was seen by gastroenterology service. They are referring him to [facility] for endoscopic sonogram. Patient was suppose to discharge on 12/06, Shortly before discharge nurse noted patient to be slightly tachycardic, mild fever. Discharge will be postponed. Continue to monitor. Check procalcitonin and trend white count. Patient has no abdominal pain, denies nausea or vomiting. Tolerating diet. No diarrhea.Diagnosed with PNA and was treated Zosyn. Patient completed the course of Zosyn and discharged with the Augmentin for 5 days. On the day of discharge, the patient was seen and examined. Vital signs were stable. Physical exam were stable and labs were reviewed at length. Discharge instructions, medications, and follow-up appointments were discussed with the patient at length and all day questions were answered. ER warnings were given. Status at Discharge Cognitive/behavioral status at discharge: Stable Time Spent with Patient Time attestation: Total time spent providing and/or coordinating discharge services: 45 minutes Exam Resp: Other: Rhonchi left lower lobe : Other: No CVA tenderness DS: Data Data Completed and Pending Labs on day of discharge: Labs from last 24 hours 12/09/24 05:24 WBC 8.4 RBC 3.78 L Hgb 12.1 L Hct 34.0 L MCV 89.9 MCH 32.0 MCHC 35.6 RDW 13.3 Plt Count 265 MPV 11.4 H Immature Gran % (Auto) 0.4 Neut % (Auto) 53.0 Lymph % (Auto) 24.8 [place] % (Auto) 10.8 H Eos % (Auto) 10.4 H Baso % (Auto) 0.6 Lymph # (Auto) 2.09 [place] # (Auto) 0.9 H Eos # (Auto) 0.9 H Baso # (Auto) 0.1 Abs Immat Gran (auto) 0.03 Absolute Neuts (auto) 4.5 Absolute Nucleated RBC 0.000 Nucleated RBC % 0.0 Sodium 138 Potassium 3.5 Chloride 103 Carbon Dioxide 26 Anion Gap 9 BUN 10 Creatinine 0.76 Estim Creat Clear Calc 155 Estimated GFR > 60 Glucose 87 Calcium 9.0 Magnesium 2.2 Preliminary micro results at discharge 12/07/24 14:16 Blood Culture - Preliminary Blood 12/07/24 14:24 Blood Culture - Preliminary Blood Discharge Plan Discharge Attending physician on discharge: Ryan Warner Consulting providers: Ascencion Toure; Uriah Pandya Discharging Clinician: Ryan Warner Anticipated Discharge Date/Time: 12/09/24 15:10 Patient Disposition: Home Activity: may shower Diet: as tolerated Discharge Instructions: Contact your doctor or call 911 and come to the Emergency Room if you have any abdominal pain,nausea or vomiting or other worrisome symptoms. Avoid NSAIDs (ibuprofen, naproxen, Aleve). Tylenol is safe to take. Follow-up with your primary care provider in 1-2 weeks. Please call for appointment. Follow-up with Gastroenterology in 2-4 weeks. Please call for an appointment. Thank you for using [facility] for your health care needs. Patient Instructions: Antibiotic Form Patient Language: Irish Stand Alone Forms: General Discharge Information Follow-up/Referrals: PHYSICIAN,[employer] [Primary Care Provider] - Thai Jalloh MD [Physician] - (call office on monday to get referral for doctor at [facility] to have endoscopic sonogram) Discharge Medications: New amoxicillin-pot clavulanate 875-125 mg tablet 1 tablet PO Q12H 5 Days Qty: 10 0RF Continued cetirizine [Zyrtec] 10 mg tablet 10 mg PO DAILY PRN (Reason: allergy symptoms) Qty: 30 0RF Other Ambulatory Orders: Complete Blood Count with Diff (Routine) Timeframe: 2 Days Location: Determined by Patient Ordered By: Toña Vera Date of admission: 12/04/24 12:47 Primary Care Provider: PHYSICIAN,[employer] Admitting Provider: Toña Vera Attending physician on admission: Toña Vera Condition: Stable
== END 2024-12-09 15:51 | disposition home or self-care (01) | DRG 282 ==
LOC: ANHED 08:22 → ANH3MEDSUR 09:57
PROVIDERS: Internal Medicine Gastroenterology; Admitting Provider General Practice; Emergency Provider Student in an Organized Health Care Education/Training Program; Visit Provider General Practice
DX: K85.90 Acute pancreatitis without necrosis or infection, unspecified (principal); J18.9 Pneumonia, unspecified organism; R00.0 Tachycardia, unspecified; Z90.49 Acquired absence of other specified parts of digestive tract
CPT/HCPCS: 36415; 71045; 71275; 74177; 74183; 76376; 80048; 80053; 81001; 83605; 83690; 83735; 84100; 84145; 84478; 84484; 85025; 85380; 87040; 93005; 96361; 96374; 96375; 96376; 99285; A9270; A9577; G0378; G0379; J1171; J1644; J1885; J2270; J2405; J2543; J3010; J7030; J7120; Q9967